=== PATIENT | male | born 1990 | race African-American/Black ===

== ENCOUNTER 2018-10-29 15:07 | Emergency (ER) | payer SELFPAY ==
[~2018-10-29] VITALS: Ht 182.9 cm; Wt 142.9 kg
--- OUTSIDE RECORDS SUMMARY | 2018-10-29 15:10 | XMS REPORT | Clinical Summary ---
Author Author DIONE Spark MobileSt. Luke'S Wood River Medical CenterNovoPolymers [facility] Organization [facility] CenterDiartis PharmaceuticalsKittitas [facility] Address Unknown Phone Unavailable Care Team Providers Care Social Services Analyst Name Role Phone Pcp, No PCP Unavailable Allergies No Known Allergies Medications End Date Status Medication Sig Dispensed Refills Start Date Active losartan (COZAAR) 100 MG Take 100 mg 0 tablet by mouth daily. Active losartan (COZAAR) 100 MG Take 100 mg 0 tablet by mouth. 9 06/23/2019 Active albuterol HFA (VENTOLIN Inhale 2 1 Inhaler 0 HFA) 90 mcg/actuation puffs by 9 inhaler mouth via inhaler every 4 (four) hours as needed for Wheezing. 05/04/2018 Discontinued fluticasone (FLONASE) 50 2 sprays. 0 mcg/actuation nasal spray 8 06/28/2018 predniSONE (DELTASONE) 20 Take 2 10 tablet 0 MG tablet tablets (40 9 mg total) by mouth daily for 5 days. Active Problems Problem Noted Date Uncontrolled hypertension 05/04/2018 Paresthesias 05/04/2018 Abnormal EKG 05/04/2018 Encounters Care Team Description Date Type Specialty Steve Marroquin DO Acute chest pain (Primary Dx); Acute URI; Essential hypertension; Obesity (BMI 30-39.9) 06/22/2018 Emergency Emergency Medicine - 06/23/2018 06/22/2018 Orders Only General Internal Medicine 06/22/2018 Regla Borrero DO Uncontrolled hypertension (Primary Dx); Paresthesias; Abnormal EKG 05/04/2018 Emergency Emergency Medicine 05/04/2018 Steve Trinh DO Acute chest pain (Primary Dx); Obesity (BMI 30-39.9); Essential hypertension 04/28/2018 Emergency Emergency Medicine 04/28/2018 Orders Only General Internal Medicine after 10/28/2017 Social History Date Tobacco Use Types Packs/Day Years Used Former Smoker Smokeless Tobacco: Never Used Alcohol Use Drinks/Week oz/Week Comments No Alcohol Habits Answer Date Recorded How often do you have a drink containing alcohol? Never 04/28/2018 How many drinks containing alcohol do you have on Not asked a typical day when you are drinking? How often do you have six or more drinks on one Not asked occasion? Sex Assigned at Date Recorded Not on file Industry Job Start Date Occupation Not on file Not on file Not on file Travel End Travel History Travel Start No recent travel history available. Last Filed Vital Signs Time Taken Vital Sign Reading 06/23/2018 12:34 AM CDT Blood Pressure 136/82 06/23/2018 12:34 AM CDT Pulse 72 06/23/2018 12:34 AM CDT Temperature 36.6 C (97.9 F) 06/23/2018 12:34 AM CDT Respiratory Rate 18 06/23/2018 12:34 AM CDT Oxygen Saturation 97% - Inhaled Oxygen - Concentration 06/22/2018 9:39 PM CDT Weight 141.1 kg (311 lb) 06/22/2018 9:39 PM CDT Height 182.9 cm (6') 06/22/2018 9:39 PM CDT Body Mass Index 42.18 Plan of Treatment Not on file Procedures Comments Procedure Name Priority Date/Time Associated Diagnosis REPORT OF PROCEDURE - 06/24/2018 ENDOSCOPY SCAN 10:24 AM CDT ED ECG INTERPRETATION Routine 06/23/2018 12:30 AM CDT CBC W/PLT COUNT & AUTO STAT 06/22/2018 DIFFERENTIAL 11:29 PM CDT RAPID TROPONIN I STAT 06/22/2018 11:29 PM CDT COMPREHENSIVE METABOLIC STAT 06/22/2018 PANEL 11:29 PM CDT CBC W/PLT COUNT & AUTO STAT 06/22/2018 DIFFERENTIAL 11:29 PM CDT XR CHEST 2 VIEWS STAT 06/22/2018 11:15 PM CDT ECG 12-LEAD Routine 06/22/2018 9:44 PM CDT ECG 12-LEAD Routine 06/22/2018 9:44 PM CDT Procedure Note - Interface, External Ris In - 06/22/2018 10:58 PM CDT Ventricula r Rate 76 BPM Atrial Rate 76 BPM P-R Interval 160 ms QRS Duration 82 ms Q-T Interval 382 ms QTC Calculatio n(Bazett) 429 ms P Omega 35 degrees R Omega 37 degrees T Omega 13 degrees Normal sinus rhythm Normal ECG When compared with ECG of 9 22:11, Nonspecifi c T wave abnormalit y now evident in Lateral leads ED ECG INTERPRETATION Routine 05/04/2018 10:11 PM BUY BOAT OPERATOR ECG 12-LEAD Routine 05/04/2018 10:11 PM BUY BOAT OPERATOR REPORT OF PROCEDURE - 05/01/2018 ENDOSCOPY SCAN 4:01 PM BUY BOAT OPERATOR RHYTHM STRIP - SCAN 05/01/2018 2:51 PM BUY BOAT OPERATOR CBC W/PLT COUNT & AUTO STAT 04/28/2018 DIFFERENTIAL 9:22 PM BUY BOAT OPERATOR B-TYPE NATRIURETIC FACTOR STAT 04/28/2018 (BNP) 9:22 PM BUY BOAT OPERATOR RAPID TROPONIN I STAT 04/28/2018 9:22 PM BUY BOAT OPERATOR PT/APTT STAT 04/28/2018 9:22 PM BUY BOAT OPERATOR CBC W/PLT COUNT & AUTO STAT 04/28/2018 DIFFERENTIAL 9:22 PM BUY BOAT OPERATOR MAGNESIUM STAT 04/28/2018 9:22 PM BUY BOAT OPERATOR BASIC METABOLIC PANEL (7) STAT 04/28/2018 9:22 PM BUY BOAT OPERATOR XR CHEST PA OR AP 1 VIEW STAT 04/28/2018 IN DEPT. 8:57 PM BUY BOAT OPERATOR ED ECG INTERPRETATION Routine 04/28/2018 8:54 PM BUY BOAT OPERATOR ECG 12-LEAD Routine 04/28/2018 8:51 PM BUY BOAT OPERATOR Procedure Note - Interface, External Ris In - 04/28/2018 8:56 PM BUY BOAT OPERATOR Ventricula r Rate 81 BPM Atrial Rate 81 BPM P-R Interval 144 ms QRS Duration 84 ms Q-T Interval 362 ms QTC Calculatio n(Bazett) 420 ms P Omega 32 degrees R Omega 14 degrees T Omega 11 degrees Normal sinus rhythm Normal ECG No previous ECGs available ECG 12-LEAD STAT 04/28/2018 8:51 PM BUY BOAT OPERATOR after 10/28/2017 Results * EKG-SCANNED (06/24/2018 10:24 AM CDT) Only the most recent of 2 results within the time period is included. Narrative Performed At * ECG/EKG Interpretation (06/23/2018 12:30 AM CDT) Only the most recent of 3 results within the time period is included. Narrative Performed At Steve Marroquin DO 06/23/2018 12:39 AM ECG/EKG Interpretation Date/Time: 06/22/2018 9:44 PM Performed by: Steve Marroquin DO Authorized by: Steve Marroquin DO The ECG was interpreted by ED physician. This ECG was not compared with previous ECG(s).The ECG is interpreted as sinus rhythm. Rate is normal rate. Heart rate is [address] segments normal. Omega is normal. Clinical Impression: non-specific ECGECG reviewed and does not meet STEMI criteria. Patient tolerance: Patient tolerated the procedure well with no immediate complications * Rapid Troponin I ([facility] Only) (06/22/2018 11:29 PM CDT) Only the most recent of 2 results within the time period is included. Rapid Troponin I <0.05 <0.05 ng/mL [facility], [facility] [place] Specimen Blood Performing Organization Address City/State/Zipcode Phone Number [facility] [address] [place] [address] [facility], [facility] [place] * CBC with platelet count + automated diff (06/22/2018 11:29 PM CDT) Only the most recent of 2 results within the time period is included. WBC 6.9 4.0 - 10.0 K/L [facility], [facility] [place] RBC 4.81 4.20 - 5.80 M/L [facility] Hemoglobin 14.6 13.0 - 16.8 GM/DL [facility] [place] Hematocrit 43.5 40.0 - 50.0 % [facility] [place] MCV 90.4 82.0 - 98.0 fL [facility] [place] MCH 30.3 27.0 - 33.0 pg [facility] [place] MCHC 33.5 32.0 - 36.0 GM/DL [facility] [place] RDW 12.9 10.3 - 14.2 % [facility] [place] Platelets 255 150 - 430 K/CU MM [facility] [place] MPV 7.9 6.5 - 10.5 fL [facility] % Neutros 59 % [facility] % Lymphs 30 % [facility] % Monos 9 % [facility] % Eos 2 % [facility] [place] % Baso 1 % [facility] [place] # Neutros 4.02 1.80 - 8.00 K/L [facility] [place] # Lymphs 2.04 1.48 - 4.50 K/L [facility] [place] # Monos 0.63 0.00 - 1.30 K/L [facility] [place] # Eos 0.14 0.00 - 0.50 K/L [facility], [facility] [place] # Baso 0.05 0.00 - 0.20 K/L [facility], [facility] [place] Specimen Blood Performing Organization Address City/State/Zipcode Phone Number [facility] [address] [place] [address] [facility], [facility] [place] * Comprehensive metabolic panel (06/22/2018 11:29 PM CDT) Protein, Total 7.9 6.0 - 8.5 gm/dL [facility], [facility] Albumin 3.9 3.5 - 5.0 g/dL [facility], [facility], [facility] Alkaline Phosphatase 92 30 - 115 U/L [facility] Total Bilirubin 0.4 0.1 - 1.2 mg/dL [facility], [facility] [place] Sodium 136 135 - 148 meq/L [facility] Potassium 4.0 3.6 - 5.5 meq/L [facility] [place] Chloride 104 98 - 106 meq/L [facility] CO2 27 24 - 32 meq/L [facility] BUN 19 10 - 26 mg/dL [facility] Creatinine 0.96 0.50 - 1.20 mg/dL [facility] [place] Glucose 89 70 - 110 mg/dL [facility] Calcium 8.7 8.5 - 10.5 mg/dL [facility], [facility] AST 24 5 - 40 U/L [facility] [place] ALT 34 5 - 50 U/L [facility], [facility] EGFR 114Comment: ESTIMATED GFR IS mL/min/1.73 sq m [facility] NOT ACCURATE CREATININE [facility] MEDICAL CLEARANCE IN [facility], CRITICAL ACCESS HOSPITAL GLOMERULAR FILTRATION RATE. EMERGENCY CENTER, ESTIMATED GFR IS NOT [facility] APPLICABLE FOR DIALYSIS PATIENTS. Specimen Blood Performing Organization Address City/State/Zipcode Phone Number [facility] [address] [place] [address] [facility], [facility] [place] * XR chest 2 views (06/22/2018 11:15 PM CDT) Specimen Narrative Performed At FINAL REPORT [facility] Chest x-ray, PA and lateral views Clinical History: CHEST PAIN Comparison:04/28/2018 Discussion: There are decreased lung volumes. There is no pneumothorax, pulmonary edema or pleural effusion. There is no focal consolidation. The cardiac silhouette appears prominent possibly due to in part to decreased lung volumes. The osseous structures are intact. Signed: Krishna Barraza MD Report Verified Date/Time:06/22/2018 23:36:43 Reading Location: [facility] [id number] Ortho Consult Reading Room Procedure Note Interface, External Ris In - 06/22/2018 11:39 PM CDT FINAL REPORT Chest x-ray, PA and lateral views Clinical History: CHEST PAIN Comparison: 04/28/2018 Discussion: There are decreased lung volumes. There is no pneumothorax, pulmonary edema or pleural effusion. There is no focal consolidation. The cardiac silhouette appears prominent possibly due to in part to decreased lung volumes. The osseous structures are intact. Signed: Krishna Barraza MD Report Verified Date/Time: 06/22/2018 23:36:43 Reading Location: [facility] [id number] Ortho Consult Reading Room Performing Organization Address City/State/Zipcode Phone Number [facility] * ECG 12 lead (06/22/2018 9:44 PM CDT) Only the most recent of 3 results within the time period is included. Specimen Narrative Performed At Ventricular Rate 76 BPM GE MUSE Atrial Rate 76 BPM P-R Interval 160 ms QRS Duration 82 ms Q-T Interval 382 ms QTC Calculation(Bazett) 429 ms P Omega 35 degrees R Omega 37 degrees T Omega 13 degrees Normal sinus rhythm Normal ECG When compared with ECG of 04-MAY-2018 22:11, No significant changes Confirmed by MD ROUSE YOCHAI ([id number]) on 06/23/2018 6:29:49 AM Procedure Note Interface, External Ris In - 06/23/2018 6:30 AM CDT Ventricular Rate 76 BPM Atrial Rate 76 BPM P-R Interval 160 ms QRS Duration 82 ms Q-T Interval 382 ms QTC Calculation(Bazett) 429 ms P Omega 35 degrees R Omega 37 degrees T Omega 13 degrees Normal sinus rhythm Normal ECG When compared with ECG of 04-MAY-2018 22:11, No significant changes Confirmed by MD ROUSE YOCHAI ([id number]) on 06/23/2018 6:29:49 AM Performing Organization Address City/[facility] Cent[facility] Phone Number GE MUSE * RHYTHM STRIP - SCAN (05/01/2018 2:51 PM BUY BOAT OPERATOR) Narrative Performed At * PT/PTT (04/28/2018 9:22 PM BUY BOAT OPERATOR) Protime 11.0 9.8 - 12.0 seconds [facility], [facility] [place] INR 1.0 <=5.9 [facility] [place] PTT 31.8 25.8 - 34.5 seconds [facility], [facility] Specimen Blood Narrative Performed At RECOMMENDED COUMADIN/WARFARIN INR THERAPY RANGES [facility] STANDARD DOSE: 2.0 - 3.0 Includes: PROPHYLAXIS for venous thrombosis, [facility] MEDICAL systemic embolization; TREATMENT for venous thrombosis and/or pulmonary embolus. [facility] HIGH RISK: Target INR is 2.5-3.5 for patients with mechanical heart valves. EMER[facility]ENCY CENTER, [facility] Performing Organization Address [facility] Center[facility]il Phone Number [address] [phone] [facility], [facility], [facility] * B-type Natriuretic Factor (BNP) (04/28/2018 9:22 PM BUY BOAT OPERATOR) BNP <5 0 - 100 pg/mL [facility] [place] Specimen Blood Performing Organization Address [facility] Phone Number [address] [phone] [facility] EM[facility]GENC[facility] [place] * Magnesium (04/28/2018 9:22 PM BUY BOAT OPERATOR) Magnesium 2.0 1.5 - 3.0 mg/dL [facility] [place] Specimen Blood Performing Organization Address [facility] Phone Number [address] [phone] [facility], [facility], [facility] * Basic Metabolic Panel (04/28/2018 9:22 PM BUY BOAT OPERATOR) Sodium 142 135 - 148 meq/L [facility] [place] Potassium 3.8 3.6 - 5.5 meq/L [facility], [facility] [place] Chloride 105 98 - 106 meq/L [facility] [place] CO2 29 24 - 32 meq/L [facility] [place] BUN 17 10 - 26 mg/dL [facility], [facility] [place] Creatinine 0.97 0.50 - 1.20 mg/dL [facility], [facility] [place] Glucose 92 70 - 110 mg/dL [facility], [facility] [place] Calcium 9.3 8.5 - 10.5 mg/dL [facility], [facility], [facility] EGFR 113Comment: INSUFFICIENT mL/min/1.73 sq m [facility] CLINICAL DATA TO CALCULATE [facility] ESTIMATED GFR. [place], [facility] [place] [facility] Specimen Blood Performing Organization Address City/[facility] Centercode Phone Number [facility] [address] [place] [address] [facility], [facility] [place] * XR chest PA or AP 1 view in dept (04/28/2018 8:57 PM BUY BOAT OPERATOR) Specimen Narrative Performed At FINAL REPORT [facility] Chest one view AP 04/28/2018 8:55 PM CLINICAL HISTORY: CHEST PAIN COMPARISON: None available FINDINGS: The lungs are clear. Cardiomediastinal contours are within normal limits. The central pulmonary vasculature is not engorged. IMPRESSION: Unremarkable frontal chest radiograph. Signed: Brian Wilder MD Report Verified Date/Time:04/28/2018 20:55:14 Reading Location: [facility] Radiology Reading Room Procedure Note Interface, External Ris In - 04/28/2018 8:58 PM BUY BOAT OPERATOR FINAL REPORT Chest one view AP 04/28/2018 8:55 PM CLINICAL HISTORY: CHEST PAIN COMPARISON: None available FINDINGS: The lungs are clear. Cardiomediastinal contours are within normal limits. The central pulmonary vasculature is not engorged. IMPRESSION: Unremarkable frontal chest radiograph. Signed: Brian Wilder MD Report Verified Date/Time: 04/28/2018 20:55:14 Reading Location: [facility] Radiology Reading Room Performing Organization Address City/[facility]/Zipcode Phone Number [facility] after 10/28/2017
--- OUTSIDE RECORDS SUMMARY | 2018-10-29 15:10 | XMS REPORT | Clinical Summary ---
Author Author [facility] Organization [facility] Address Unknown Phone Unavailable Care Team Providers Care Live In Housekeeper Name Role Phone Asked, No Pcp PCP Unavailable Allergies No Known Allergies Medications End Date Status Medication Sig Dispensed Refills Start Date 04/27/2018 Discontinued losartan (COZAAR) 50 MG Take 50 mg by 0 tablet mouth daily. 05/27/2018 losartan (COZAAR) 100 MG Take 1 tablet 30 tablet 0 tablet (100 mg 9 total) by mouth daily for 30 days. Active Problems Problem Noted Date Syncope 04/26/2018 Encounters Care Team Description Date Type Specialty Rehrer, DO Ashley Ulloa Martina C., MD Janjua, Ejaz, DO Syncope, unspecified syncope type (Primary Dx); Hypertension, unspecified type 04/26/2018 Emergency General Internal Medicine - 04/27/2018 04/26/2018 Travel after 10/28/2017 Social History Date Tobacco Use Types Packs/Day Years Used Current Every Day Smoker 0.5 5 Smokeless Tobacco: Never Used Alcohol Use Drinks/Week oz/Week Comments No Sex Assigned at Date Recorded Not on file Industry Job Start Date Occupation Not on file Not on file Not on file Travel End Travel History Travel Start No recent travel history available. Last Filed Vital Signs Time Taken Vital Sign Reading 04/27/2018 10:51 AM CONSOLE ATTENDANT Blood Pressure 141/98 04/27/2018 10:51 AM CONSOLE ATTENDANT Pulse 65 04/27/2018 8:07 AM CONSOLE ATTENDANT Temperature 36.9 C (98.5 F) 04/27/2018 9:54 AM CONSOLE ATTENDANT Respiratory Rate 18 04/27/2018 8:07 AM CONSOLE ATTENDANT Oxygen Saturation 99% - Inhaled Oxygen - Concentration 04/26/2018 9:54 AM CONSOLE ATTENDANT Weight 142 kg (312 lb 7 oz) 04/26/2018 9:54 AM CONSOLE ATTENDANT Height 182.9 cm (6') 04/26/2018 9:54 AM CONSOLE ATTENDANT Body Mass Index 42.37 Plan of Treatment Health Maintenance Due Date Last Done Comments INFLUENZA VACCINE 10/22/2018 Procedures Comments Procedure Name Priority Date/Time Associated Diagnosis METANEPHRINES, PLASMA Routine 04/27/2018 (FREE) 9:13 AM CONSOLE ATTENDANT ECHOCARDIOGRAM 2D Routine 04/26/2018 COMPLETE W MMODE SPECTRAL 11:49 AM CONSOLE ATTENDANT COLOR DOPPLER (73000) EEG AWAKE/ASLEEP LESS Routine 04/26/2018 THAN 41 MIN 9:07 AM CONSOLE ATTENDANT ECG 12-LEAD Routine 04/26/2018 7:44 AM CONSOLE ATTENDANT THYROID STIMULATING Timed 04/26/2018 HORMONE 6:21 AM CONSOLE ATTENDANT CORTISOL LEVEL, RANDOM Timed 04/26/2018 6:21 AM CONSOLE ATTENDANT LIPID PANEL Timed 04/26/2018 6:21 AM CONSOLE ATTENDANT TROPONIN Timed 04/26/2018 6:[address] ANGIOGRAM PE CHEST STAT 04/26/2018 4:29 AM CONSOLE ATTENDANT D-DIMER STAT 04/26/2018 2:23 AM CONSOLE ATTENDANT ECG ED PRELIMINARY Routine 04/26/2018 INTERPRETATION 2:12 AM CONSOLE ATTENDANT ECG 12-LEAD STAT 04/26/2018 1:50 AM CONSOLE ATTENDANT METANEPHRINES, PLASMA STAT 04/26/2018 (FREE) 1:14 AM CONSOLE ATTENDANT HEMOGLOBIN A1C STAT 04/26/2018 1:14 AM CONSOLE ATTENDANT ESTIMATED GFR STAT 04/26/2018 1:14 AM CONSOLE ATTENDANT B NATRIURETIC PEPTIDE STAT 04/26/2018 1:14 AM CONSOLE ATTENDANT TROPONIN STAT 04/26/2018 1:14 AM CONSOLE ATTENDANT COMPREHENSIVE METABOLIC STAT 04/26/2018 PANEL 1:14 AM CONSOLE ATTENDANT HC COMPLETE BLD COUNT STAT 04/26/2018 W/AUTO DIFF 1:14 AM CONSOLE ATTENDANT after 10/28/2017 Results * Metanephrines, plasma (free) (04/27/2018 9:13 AM CONSOLE ATTENDANT) Only the most recent of 2 results within the time period is included. Metanephrine <0.10Comment: Results 0.00 - 0.49 nmol/L [place] repeated. [facility] Normetanephrine <0.10 0.00 - 0.89 nmol/L [place] Comment: [facility] This test was developed and HOSPITAL its performance characteristics determined by the Department of Pathology and Genomic Medicine, [facility]. Plasma free metanephrines are tested by LC-MS/MS. It has not beencleared or approved by FDA. The laboratory is regulated under CLIA as qualified to perform high-complexity testing. This test is used for clinical purposes. It should not be regarded as investigational or for research. Results repeated. Specimen Blood Performing Organization Address City/State/Zipcode Phone Number [facility] DEPARTMENT OF [address] [place] [address] PATHOLOGY AND GENOMIC MEDICINE [address] * Echocardiogram complete w contrast and 3D if needed (04/26/2018 11:49 AM CONSOLE ATTENDANT) Specimen Narrative Performed At [facility] Echocardiography Report [id number] [facility], [facility] 9, [address]Name:TOBY RILEYmynor.ID:[id number] .Date: 04/26/2018Exam Time: 11:02:00 AM Study Type:Routine EchoHeight:72in Weight:312lb BSA: 2.58 m2 DOBAge:1990,27Y Sex: MALE BP:164/103 HR:87 bpm Sonogrphr: MARIA M Jordan Pat. Stat.:Inpatient Room:[address] Status:Final Echo Event ID:[id number] Order ID:[id number] Reason for Study:Syncope/fainting History / Clinical:Hypertension, Syncope Procedures:2D Echo, Colorflow Doppler, Intravenous Optison Contrast SUMMARY: Normal 2D and Doppler examination. FINDINGS: LV: LV size is normal. LV EF is normal. Overall wall motion is normal.Estimated EF is 60-64%. RV: RV size is normal. RV systolic function is normal. LA: LA size is normal. RA: RA size is normal. AO: Aortic root diameter is normal. [place]: No pericardial effusion. AV: No structural AV abnormalities noted. MV: No structural MV abnormalities noted. PV: No structural PV abnormalities noted. TV: No structural TV abnormalities noted. Perez: Normal diastolic function. Other:Insufficient TR jet to estimate PA systolic pressure. MEASUREMENTS: 2D Parasternal Long Nichols LVOT 2.2 cmAo An2.2 cm LVIDd5 cmIndex1.9 cm/m Ao Rtd 3.1 cm Index1.2 cm/m LVIDs3.3 cm LV Jsmb900.2 g(122-174) LV%fs 34.8 % LVM Index 89.2 g/m2 IVSd 1.2 cmRWT0.5 LVPWd1.2 cm LA Sng Plane LA Area 17.9 cm2(8.8-23.4) LA Vol48.6 ml Index18.8 ml/m LA LngAx 5.5 cm RA Sng Plane RA Area 17.2 cm2(8.3-19.5) RA Vol46.2 ml Index17.9 ml/m RA LngAx 5.5 cm DOPPLER LVOT Stroke Vol LVOT 2.2 cmLVOT CO0.2 l/min LVOT TVI19.8 cmLVOT CI0.1 l/m/m2 LVOT Tm319 msecHR 2.2 bpm LVOT SV 75.4 ml Signed 04/26/2018 02:46 PM Abhishek Brenner M.D. Procedure Note Interface, Radiology Results In - 04/26/2018 2:47 PM CONSOLE ATTENDANT Echocardiography Report [id number] [place] [address] Pat.Name: TOBY RILEY Pat.ID: [id number] .Date: 04/26/2018 Exam Time: 11:02:00 AM Study Type:Routine Echo Height: 72in Weight: 312lb BSA: 2.58 m2 Age: 6 1990,27Y Sex: MALE BP: 164/103 HR: 87 bpm Sonogrphr: MARIA M Jordan Pat. Stat.:Inpatient Room: [facility] Study Status:Final Echo Event ID:[id number] Order ID: [id number] Reason for Study:Syncope/fainting History / Clinical:Hypertension, Syncope Procedures:2D Echo, Colorflow Doppler, Intravenous Optison Contrast SUMMARY: Normal 2D and Doppler examination. FINDINGS: LV: LV size is normal. LV EF is normal. Overall wall motion is normal. Estimated EF is 60-64%. RV: RV size is normal. RV systolic function is normal. LA: LA size is normal. RA: RA size is normal. AO: Aortic root diameter is normal. [place]: No pericardial effusion. AV: No structural AV abnormalities noted. MV: No structural MV abnormalities noted. PV: No structural PV abnormalities noted. TV: No structural TV abnormalities noted. Perez: Normal diastolic function. Other: Insufficient TR jet to estimate PA systolic pressure. MEASUREMENTS: 2D Parasternal Long Nichols LVOT 2.2 cm Ao An 2.2 cm LVIDd 5 cm Index 1.9 cm/m Ao Rtd 3.1 cm Index 1.2 cm/m LVIDs 3.3 cm LV Mass 230.2 g (122-174) LV%fs 34.8 % LVM Index 89.2 g/m2 IVSd 1.2 cm RWT 0.5 LVPWd 1.2 cm LA Sng Plane LA Area 17.9 cm2 (8.8-23.4) LA Vol 48.6 ml Index 18.8 ml/m LA LngAx 5.5 cm RA Sng Plane RA Area 17.2 cm2 (8.3-19.5) RA Vol 46.2 ml Index 17.9 ml/m RA LngAx 5.5 cm DOPPLER LVOT Stroke Vol LVOT 2.2 cm LVOT CO 0.2 l/min LVOT TVI 19.8 cm LVOT CI 0.1 l/m/m2 LVOT Tm 319 msec HR 2.2 bpm LVOT SV 75.4 ml Signed 04/26/2018 02:46 PM Abhishek Brenner M.D. Performing Organization Address City/State/Zipcode Phone Number [facility] [address] [place] [address] * EEG (routine) (04/26/2018 9:07 AM CONSOLE ATTENDANT) Narrative Performed At EEG AWAKE AND ASLEEP Date of Service: 04/26/18 Awake Recording: The occipital dominant rhythm is 10-11 Hz. 18-22 Hz activity is present in all regions. Sleep Recording:No epileptiform activity was recorded. Hyperventilation: Not performed. Photic Stimulation: No abnormality elicited. Impression The background activity is within the range of normal variation. No lateralized or epileptiform activity was recorded. ICD-10 Code: R569 * ECG 12 lead (04/26/2018 7:44 AM CONSOLE ATTENDANT) Only the most recent of 2 results within the time period is included. Ventricular 68 [facility] rate Atrial rate 68 [facility] MA interval 148 [facility] QRSD interval 86 [facility] QT interval 408 [facility] QTC interval 433 [facility] P axis 1 30 [facility] QRS axis 1 40 [facility] T wave axis 9 [facility] EKG impression Normal sinus rhythm with sinus H MUSE arrhythmia-Normal ECG-In automated comparison with ECG of 26-APR-2018 01:50,-Borderline criteria for Inferior infarct are no longer present-Nonspecific T wave abnormality has replaced inverted T waves in Inferior leads-Nonspecific T wave abnormality no longer evident in Anterolateral leads- Specimen Narrative Performed At Performing Organization Address [facility] Phone Number [address] [address] * Troponin (04/26/2018 6:21 AM CONSOLE ATTENDANT) Only the most recent of 2 results within the time period is included. Pathologist [facility] Troponin <0.30 0.00 - 0.30 ng/mL [place] Comment: [facility] 0.30 - 1.49 HOSPITAL ng/mlMay indicate increased risk of acute coronary syndrome. >=1.5 ng/ml Consistent with acute myocardial infarction. The diagnostic value of a single normal or non-diagnostic result is questionable.Serial samples at 2-6 hour intervals are required to rule out acute myocardial injury. Specimen Plasma specimen Performing Organization Address City/State/Zipcode Phone Number [facility] DEPARTMENT [address] [address] PATHOLOGY AND GENOMIC MEDICINE [address] * Thyroid stimulating hormone (04/26/2018 6:21 AM CONSOLE ATTENDANT) [facility] TSH 0.96 0.27 - 4.20 uIU/mL [facility] Specimen Plasma specimen Performing Organization Address City/[facility]/Zipcode Phone Number [facility] DEPARTMENT [address] [address] PATHOLOGY AND GENOMIC MEDICINE [address] * Cortisol level, random (04/26/2018 6:21 AM CONSOLE ATTENDANT) Cortisol, 7 ug/dL [place] random Comment: [facility] Reference Ranges are not HOSPITAL established for non-timed Cortisol levels. Reference Range for Timed Cortisol: 6 - 10 AM 6 - 18 ug/dl 4 - 8PM 3 - 11 ug/dl Specimen Plasma specimen Performing Organization Address [facility] Phone Number [facility] [place] [address] PATHOLOGY AND GENOMIC MEDICINE [address] * Lipid panel (04/26/2018 6:21 AM CONSOLE ATTENDANT) [facility] Signature Cholesterol 154 <200 mg/dL [facility] Triglycerides 59 <150 mg/dL [facility] HDL cholesterol 54 >40 mg/dL [facility] LDL cholesterol 94Comment: Result obtained by <100 mg/dL [place] direct LDL measurement [facility] Lipid panel [facility] interpretation Comment: [facility] Total Cholesterol HOSPITAL (mg/dL) <200 Desirable 200-239Borderline -high >=240High Triglycerides (mg/dL) <150 Normal 150-199Borderline -high 200-499High >=500Very high HDL Cholesterol (mg/dL) <40Low (male) <40Low (female) LDL Cholesterol (mg/dL) <100 Optimal 100-129Near or above optimal 130-159Borderline -high 160-189High >=190Very high Risk Catergories that modify LDL goals. Risk Catergories LDL goal (mg/dL) CHD and CHD risk equivalent<100 (10-year risk >20%) Multiple (2+) risk factors <130 (10-year risk=<20%) 0-1 risk factors <160 (<10-year risk) Defining levels of lipids in metabolic syndrome Triglycerides >=150 mg/dL HDL Cholesterol Men <40 mg/dL Women <40 mg/dL Non-HDL cholesterol is a second target for therapy in persons with high triglycerides (>=200 mg/dL) Specimen Plasma specimen Performing Organization Address City/[facility] Phone Number [facility] DEPARTMENT OF [address] [place] [address] PATHOLOGY AND GENOMIC MEDICINE [address] * CT Angiogram Pe Chest (04/26/2018 4:29 AM CONSOLE ATTENDANT) Specimen Narrative Performed At EXAMINATION:[facility]: PE suspectedintermediate probpositive D-dimer, syncope TECHNIQUE:CT angiographic images of the chest were obtained during intravenous administration of iodinated contrast. Computerized reformatted images and 3-D MIP images were also obtained and archived (CT pulmonary embolus protocol).CT scans are performed using radiation dose reduction techniques.Technical factors are evaluated and adjusted to ensure appropriate moderation of exposure.Automated dose management technology is applied to adjust radiation exposure while achieving a diagnostic quality image. COMPARISON:None. Findings: There are no filling defects within the pulmonary arterial system to suggest a pulmonary embolus. No dissection or aneurysm is seen. No consolidation or pleural effusion is seen. No pulmonary mass or nodule is seen. No mediastinal hematoma or lymphadenopathy is seen. Visualized upper abdomen shows no acute abnormality. IMPRESSION: 1. No evidence of pulmonary embolus. No acute abnormality identified in the chest. [facility]-[id number] Procedure Note Interface, Radiology Results Incoming - 04/26/2018 4:36 AM CONSOLE ATTENDANT EXAMINATION: CT ANGIOGRAM PE CHEST CLINICAL HISTORY: PE suspected intermediate prob positive D-dimer, syncope TECHNIQUE: CT angiographic images of the chest were obtained during intravenous administration of iodinated contrast. Computerized reformatted images and 3-D MIP images were also obtained and archived (CT pulmonary embolus protocol). CT scans are performed using radiation dose reduction techniques. Technical factors are evaluated and adjusted to ensure appropriate moderation of exposure. Automated dose management technology is applied to adjust radiation exposure while achieving a diagnostic quality image. COMPARISON: None. Findings: There are no filling defects within the pulmonary arterial system to suggest a pulmonary embolus. No dissection or aneurysm is seen. No consolidation or pleural effusion is seen. No pulmonary mass or nodule is seen. No mediastinal hematoma or lymphadenopathy is seen. Visualized upper abdomen shows no acute abnormality. IMPRESSION: 1. No evidence of pulmonary embolus. No acute abnormality identified in the chest. [facility]-[id number] Performing Organization Address City/State/Zipcode Phone Number [facility] [address] [place] [address] * D-dimer (04/26/2018 2:23 AM CONSOLE ATTENDANT) D-dimer 0.57 (H) 0.00 - 0.40 ug/mL [place] Comment: FEU [facility] Units are ug/ml Fibrinogen HOSPITAL Equivalent Unit. When combined with low clinical probability, D-dimer results of less than 0.5 ug/ml FEU have a good negativepredictive value in excluding PE or DVT. For D-dimer results greater than 0.5ug/ml FEU further testing is indicated if PE or DVT is suspectedclinically. Elevated D-dimer results have been reported in DVT, PE, and DIC cases and may indicate the presence of a clot. D-dimer results may be elevated due to old age, , inflammatory diseases, trauma, post-operative states, sepsis, and malignancies. Specimen Blood Performing Organization Address City/State/Zipcode Phone Number [facility] DEPARTMENT OF [address] [place] [address] PATHOLOGY AND GENOMIC MEDICINE [place] [facility] [address] [place] [address] * ECG ED Preliminary Interpretation - Not an Order (04/26/2018 2:12 AM CONSOLE ATTENDANT) Narrative Performed At Aamir Saab DO 04/28/20186:46 PM ECG ED Preliminary Interpretation - Not an Order Performed by: Aamir Saab DO Authorized by: Aamir Saab DO ECG reviewed by ED Physician in the absence of a new grad rn: yes Previous ECG: Previous ECG:Compared to current Comparison ECG info:EKG changed from August 2016. Similarity:Changes noted Interpretation: Interpretation: abnormal Rate: ECG rate:65 ECG rate assessment: normal Rhythm: Rhythm: sinus rhythm QRS: QRS axis:Normal QRS intervals:Normal Conduction: Conduction: normal ST segments: ST segments:Normal T waves: T waves: inverted Inverted:III, aVF, V4, V5 and V6 Q waves: Q waves:II, III and aVF * Estimated GFR (04/26/2018 1:14 AM CONSOLE ATTENDANT) [facility] Estimated GFR >=90 mL/min/1.73 m2 [place] Comment: [facility] rpretation G1 >=90 Normal or high G2 60-89Mildly decreased O5w45-03 Mildly to moderately decreased B1t05-15 Moderately to severely decreased G4 15-29Severely decreased G5 <15Kidney failure The eGFR was calculated using the Chronic Kidney Disease Epidemiology Collaboration (CKD-EPI) equation. Interpretation is based on recommendations of the National Kidney Foundation-Kidney Disease Outcomes Quality Initiative (NKF-KDOQI) published in 2014. Specimen Plasma specimen Performing Organization Address City/State/Zipcode Phone Number [facility] DEPARTMENT [facility] [place] [address] PATHOLOGY AND GENOMIC MEDICINE [address] * CBC with platelet and differential (04/26/2018 1:14 AM CONSOLE ATTENDANT) WBC 7.11 4.50 - 11.00 k/uL [facility] RBC 5.06 4.40 - 6.00 m/uL [facility] HGB 15.2 14.0 - 18.0 g/dL [facility] HCT 45.7 41.0 - 51.0 % [facility] MCV 90.3 82.0 - 100.0 fL [facility] MCH 30.0 27.0 - 34.0 pg [facility] MCHC 33.3 31.0 - 37.0 g/dL [facility] RDW - SD 42.7 37.0 - 55.0 fL [facility] MPV 10.8 8.8 - 13.2 fL [facility] Platelet count 221 150 - 400 k/uL [facility] Nucleated RBC 0.00 /100 WBC [facility] Neutrophils 64.8 39.0 - 69.0 % [facility] Lymphocytes 23.9 (L) 25.0 - 45.0 % [facility] Monocytes 9.1 0.0 - 10.0 % [facility] Eosinophils 1.1 0.0 - 5.0 % [facility] Basophils 0.8 0.0 - 1.0 % [facility] Immature 0.3Comment: "Immature 0.0 - 1.0 % [place] granulocytes granulocytes" (promyelocytes, [facility] myelocytes, metamyelocytes) HOSPITAL Specimen Blood Performing Organization Address City/[facility]/Zipcode Phone Number [facility] DEPARTMENT [facility] [place] [address] PATHOLOGY AND GENOMIC MEDICINE [address] * B natriuretic peptide (04/26/2018 1:14 AM CONSOLE ATTENDANT) BNP 10 0 - 100 pg/mL [facility] Specimen Blood Performing Organization Address City/State/Zipcode Phone Number [facility] DEPARTMENT OF [address] [place] [address] PATHOLOGY AND GENOMIC MEDICINE [address] * Hemoglobin A1c (04/26/2018 1:14 AM CONSOLE ATTENDANT) Hemoglobin A1C 5.3 4.0 - 5.6 % [place] Comment: [facility] HbA1c cutoffs for diagnosing HOSPITAL diabetes: 4.0% - 5.6%=normal 5.7% - 6.4%=increased risk for diabetes (prediabetes) >=6.5%=diabetes Goals for glycemic control (ADA 2016) < 7.0%Target for non adults with diabetes. More or less stringent targets may be appropriate for individual patients. <7.5% Target for Children and adolescents with type 1 diabetes. Specimen Performing Organization Address City/State/[place] [address] PATHOLOGY AND GENOMIC MEDICINE [address] * Comprehensive metabolic panel (04/26/2018 1:14 AM CONSOLE ATTENDANT) Sodium 139 135 - 148 mEq/L [facility] Potassium 3.8 3.5 - 5.0 mEq/L [facility] Chloride 103 98 - 112 mEq/L [facility] CO2 29 24 - 31 mEq/L [facility] Anion gap 7@ANIO 7 - 15 mEq/L [facility] BUN 14 6 - 20 mg/dL [facility] Creatinine 1.05 0.70 - 1.20 mg/dL [facility] Glucose 89 65 - 99 mg/dL [facility] Calcium 9.3 8.3 - 10.2 mg/dL [facility] Protein 7.5 6.3 - 8.3 g/dL [place] Comment: [facility] 4.6-7.0 g/dL 1 week 4.4-7.6 g/dL 7 months-1year 5.1-7.3 g/dL 1-2 years5.6-7 .5 g/dL >3 years6.0-8 .0 g/dL 18-150 6.3-8.3 g/dL Albumin 3.6 3.5 - 5.0 g/dL [facility] A/G ratio 0.9 0.7 - 3.8 [facility] Alkaline 80 40 - 129 U/L [place] phosphatase [facility] AST 21 10 - 50 U/L [facility] ALT 24 5 - 50 U/L [facility] Total bilirubin 0.5 0.0 - 1.2 mg/dL [facility] Specimen Plasma specimen Performing Organization Address City/State/Zipmtde Phone Number [facility] DEPARTMENT OF [address] [place] [address] PATHOLOGY [place] [address] HOSPITAL after 10/28/2017 Insurance Type Payer Benefit Subscriber ID Effective Phone Address Plan / Dates Group O ASHLEY NG xxxxxxxxxxx 2017- ASHLEY RAMIREZ [facility]
--- OUTSIDE RECORDS SUMMARY | 2018-10-29 15:11 | XMS REPORT | CCD ---
Author Author Auto Generated Organization [facility] Address Unknown Phone Unavailable Care Team Providers Care Collector Name Role Phone Timo Hanna CP [phone] Allergies, Adverse Reactions, Alerts Substance Reaction Status NKDA Active Medications Medication Instructions Start Date End Date Status Tessalon 200 mg oral 200 mg=1 cap, PO, TID, # 21 cap, 0 03/12/2013 03/19/2013 Ordered capsule Refill(s) Zithromax Z-Jon 250 250 mg=1 tab, PO, Daily, TAKE 2 03/12/2013 Ordered mg oral tablet TABLETS ON DAY 1; TAKE 1 TABLET ON DAYS 2 - 5, # 1 Pack, 0 Refill(s) TAKE 2 TABLETS ON DAY 1; TAKE 1 TABLET ON DAYS 2 - 5 Tessalon Perles 200 mg, 2 cap, Route: PO, Drug 03/12/2013 03/12/2013 Completed form: CAP, ONCE, Dosing Weight 145.455, kg, Start date: 03/12/13 21:31:00, Stop date: 03/12/13 21:31:00(Same As: Tessalon Perles)"Do Not Crush" Vital Signs Most recent to oldest [Reference Range]: 1 Height 182.88 cm (03/12/2013 20:51:00) Temperature Oral [96.4-99.1 DegF] 99.0 DegF (03/12/2013 20:51:00) Systolic Blood Pressure [90-140 mmHg] 144 mmHg *HI* (03/12/2013 20:51:00) Diastolic Blood Pressure [60-90 mmHg] 93 mmHg *HI* (03/12/2013 20:51:00) Respiratory Rate [14-20 BRMIN] 22 BRMIN *HI* (03/12/2013 20:51:00) Peripheral Pulse Rate [60-100 bpm] 76 bpm (03/12/2013 20:51:00) Weight 145.455 kg (03/12/2013 20:51:00) Results VIRAL - SEROLOGY Most recent to oldest [Reference Range]: 1 Influ A [Negative] Negative (03/12/2013 21:23:44) Influ B [Negative] Negative 1 (03/12/2013 21:23:44) 1Interpretive Data: Influenza A&B Antigen: Due to the low sensitivity of this test a negative result does not exclude influ mague virus infection. A diagnosis of influenza should be considered based on a p atient's clinical presentation and empiric antiviral treatment should be conside red, if indicated. If more conclusive testing is desired, follow-up confirmatory testing with either viral culture or PCR is warranted.
--- OUTSIDE RECORDS SUMMARY | 2018-10-29 15:11 | XMS REPORT ---
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 Allergies, Adverse Reactions, Alerts This patient has no known allergies or adverse reactions. Medications This patient has no known medications. Encounters Start Date/Time End Date/Time Encounter Type Admission Type Attending Clinicians Care Facility Care Department Encounter ID 2018-05-14 11:10:00 2018-05-14 11:10:00 Emergency E [id number] Results Test Description Test Time Test Comments Text Results Atomic Results Result Comments RAPID TROPONIN I 2018-06-23 00:08:00 RAPID TROPONIN I (BEAKER) (test mvnw=9154) < ng/mL <0.05 COMPREHENSIVE METABOLIC [id number] 23:55:00* Test Item Value Reference Range Comments TOTAL PROTEIN (BEAKER) (test abdr=331) 7.9 gm/dL 6.0-8.5 ALBUMIN (BEAKER) (test kcku=0274) 3.9 g/dL 3.5-5.0 ALKALINE PHOSPHATASE (BEAKER) (test btpy=469) 92 U/L 30-115 BILIRUBIN TOTAL (BEAKER) (test veks=904) 0.4 mg/dL 0.1-1.2 SODIUM (BEAKER) (test zcch=403) 136 meq/L 135-148 POTASSIUM (BEAKER) (test gtld=379) 4.0 meq/L 3.6-5.5 CHLORIDE (BEAKER) (test prpw=114) 104 meq/L 98-106 CO2 (BEAKER) (test mznp=320) 27 meq/L 24-32 BLOOD UREA NITROGEN (BEAKER) (test klgz=743) 19 mg/dL 10-26 CREATININE (BEAKER) (test npeh=052) 0.96 mg/dL 0.50-1.20 GLUCOSE RANDOM (BEAKER) (test wuzu=893) 89 mg/dL 70-110 CALCIUM (BEAKER) (test fukx=999) 8.7 mg/dL 8.5-10.5 AST (SGOT) (BEAKER) (test exlq=414) 24 U/L 5-40 ALT (SGPT) (BEAKER) (test pfsb=048) 34 U/L 5-50 EGFR (BEAKER) (test vspf=2314) 114 mL/min/1.73 sq m ESTIMATED GFR IS NOT ACCURATE CREATININE CLEARANCE IN PREDICTING GLOMERULAR FILTRATION RATE. ESTIMATED GFR IS NOT APPLICABLE FOR DIALYSIS PATIENTS. CBC W/PLT COUNT & AUTO [id number] 23:43:00* Test Item Value Reference Range Comments WHITE BLOOD CELL COUNT (BEAKER) (test xlsu=266) 6.9 K/ L 4.0-10.0 RED BLOOD CELL COUNT (BEAKER) (test yeps=537) 4.81 M/ L 4.20-5.80 HEMOGLOBIN (BEAKER) (test gxdk=736) 14.6 GM/DL 13.0-16.8 HEMATOCRIT (BEAKER) (test yuog=876) 43.5 % 40.0-50.0 MEAN CORPUSCULAR VOLUME (BEAKER) (test ewag=704) 90.4 fL 82.0-98.0 MEAN CORPUSCULAR HEMOGLOBIN (BEAKER) (test vuyi=297) 30.3 pg 27.0-33.0 MEAN CORPUSCULAR HEMOGLOBIN CONC (BEAKER) (test xoti=116) 33.5 GM/DL 32.0-36.0 RED CELL DISTRIBUTION WIDTH (BEAKER) (test hlfp=920) 12.9 % 10.3-14.2 PLATELET COUNT (BEAKER) (test gvif=874) 255 K/CU MM 150-430 MEAN PLATELET VOLUME (BEAKER) (test dzes=877) 7.9 fL 6.5-10.5 NEUTROPHILS RELATIVE PERCENT (BEAKER) (test szfi=681) 59 % LYMPHOCYTES RELATIVE PERCENT (BEAKER) (test gshn=068) 30 % MONOCYTES RELATIVE PERCENT (BEAKER) (test cnxj=095) 9 % EOSINOPHILS RELATIVE PERCENT (BEAKER) (test vres=862) 2 % BASOPHILS RELATIVE PERCENT (BEAKER) (test vkrw=830) 1 % NEUTROPHILS ABSOLUTE COUNT (BEAKER) (test ojdx=867) 4.02 K/ L 1.80-8.00 LYMPHOCYTES ABSOLUTE COUNT (BEAKER) (test qmow=722) 2.04 K/ L 1.48-4.50 MONOCYTES ABSOLUTE COUNT (BEAKER) (test qren=843) 0.63 K/ L 0.00-1.30 EOSINOPHILS ABSOLUTE COUNT (BEAKER) (test ouqx=748) 0.14 K/ L 0.00-0.50 BASOPHILS ABSOLUTE COUNT (BEAKER) (test zuyl=201) 0.05 K/ L 0.00-0.20 RAD, CHEST, 2 [id number] 23:36:00Reason for exam:->CHEST PAINcough for a month with green mucus, chest pains intermittentlyShould this be performed at the bedside?->NoFINAL REPORT Chest x-ray, PA and lateral views Clinical History: CHEST PAIN Comparison: 04/28/2018 Discussion: There are decreased lung volumes. There is no pneumothorax, pulmonary edema or pleural effusion. There is no focal consolidation. The cardiac silhouette appears prominent possibly due to in part to decreased lung volumes. The osseous structures are intact. Signed: Krishna Barraza MDReport Verified Date/Time: 06/22/2018 23:36:43 Reading Location: [address] Ortho Consult Reading Room B-TYPE NATRIURETIC FACTOR (BNP)2018-04-28 21:45:00* Test Item Value Reference Range Comments B-TYPE NATRIURETIC PEPTIDE (BEAKER) (test mkjk=315) < pg/mL 0-100 RAPID TROPONIN [id number] 21:45:00* Test Item Value Reference Range Comments RAPID TROPONIN I (BEAKER) (test stdt=7710) < ng/mL <0.05 [id number] 21:41:00* Test Item Value Reference Range Comments MAGNESIUM (BEAKER) (test nahk=965) 2.0 mg/dL 1.5-3.0 BASIC METABOLIC [id number] 21:41:00* Test Item Value Reference Range Comments SODIUM (BEAKER) (test baws=506) 142 meq/L 135-148 POTASSIUM (BEAKER) (test yiov=301) 3.8 meq/L 3.6-5.5 CHLORIDE (BEAKER) (test ssys=387) 105 meq/L 98-106 CO2 (BEAKER) (test ldak=403) 29 meq/L 24-32 BLOOD UREA NITROGEN (BEAKER) (test lppp=659) 17 mg/dL 10-26 CREATININE (BEAKER) (test qzhx=119) 0.97 mg/dL 0.50-1.20 GLUCOSE RANDOM (BEAKER) (test wuuu=148) 92 mg/dL 70-110 CALCIUM (BEAKER) (test iupj=470) 9.3 mg/dL 8.5-10.5 EGFR (BEAKER) (test bbbj=7712) 113 mL/min/1.73 sq m INSUFFICIENT CLINICAL DATA TO CALCULATE ESTIMATED GFR. PT/[id number] 21:40:00* Test Item Value Reference Range Comments PROTIME (BEAKER) (test ntoy=460) 11.0 seconds 9.8-12.0 INR (BEAKER) (test fcho=840) 1.0 <=5.9 PARTIAL THROMBOPLASTIN TIME (BEAKER) (test wjdj=837) 31.8 seconds 25.8-34.5 RECOMMENDED COUMADIN/WARFARIN INR THERAPY RANGESSTANDARD DOSE: 2.0 - 3.0 Inclu soham: PROPHYLAXIS for venous thrombosis, systemic embolization; TREATMENT for morgan ous thrombosis and/or pulmonary embolus.HIGH RISK: Target INR is 2.5-3.5 for pat ients with mechanical heart valves.CBC W/PLT COUNT & AUTO [id number] 21:32:00* Test Item Value Reference Range Comments WHITE BLOOD CELL COUNT (BEAKER) (test avzg=487) 7.6 K/ L 4.0-10.0 RED BLOOD CELL COUNT (BEAKER) (test znkx=333) 5.24 M/ L 4.20-5.80 HEMOGLOBIN (BEAKER) (test ytey=131) 16.1 GM/DL 13.0-16.8 HEMATOCRIT (BEAKER) (test djyt=854) 47.6 % 40.0-50.0 MEAN CORPUSCULAR VOLUME (BEAKER) (test osxb=543) 90.9 fL 82.0-98.0 MEAN CORPUSCULAR HEMOGLOBIN (BEAKER) (test erbf=489) 30.7 pg 27.0-33.0 MEAN CORPUSCULAR HEMOGLOBIN CONC (BEAKER) (test lglq=412) 33.8 GM/DL 32.0-36.0 RED CELL DISTRIBUTION WIDTH (BEAKER) (test snrl=962) 12.9 % 10.3-14.2 PLATELET COUNT (BEAKER) (test rrdy=042) 246 K/CU MM 150-430 MEAN PLATELET VOLUME (BEAKER) (test gxzo=748) 9.0 fL 6.5-10.5 NEUTROPHILS RELATIVE PERCENT (BEAKER) (test zlny=703) 63 % LYMPHOCYTES RELATIVE PERCENT (BEAKER) (test proa=433) 26 % MONOCYTES RELATIVE PERCENT (BEAKER) (test ekwv=137) 9 % EOSINOPHILS RELATIVE PERCENT (BEAKER) (test hsmi=748) 2 % BASOPHILS RELATIVE PERCENT (BEAKER) (test oxts=272) 1 % NEUTROPHILS ABSOLUTE COUNT (BEAKER) (test ctpt=668) 4.77 K/ L 1.80-8.00 LYMPHOCYTES ABSOLUTE COUNT (BEAKER) (test nptq=306) 1.94 K/ L 1.48-4.50 MONOCYTES ABSOLUTE COUNT (BEAKER) (test ihtl=752) 0.67 K/ L 0.00-1.30 EOSINOPHILS ABSOLUTE COUNT (BEAKER) (test bror=770) 0.14 K/ L 0.00-0.50 BASOPHILS ABSOLUTE COUNT (BEAKER) (test jyif=710) 0.08 K/ L 0.00-0.20 RAD, CHEST, PA OR AP, 1 [id number] 20:55:00Reason for exam:->CHEST PAINShould this be performed at the bedside?->NoFINAL REPORT Chest one view AP 04/28/2018 8:55 PM CLINICAL HISTORY: CHEST PAIN COMPARISON: None available FINDINGS: The lungs are clear. Cardiomediastinal contours are within normal limits. The central pulmonary vasculature is not engorged. IMPRESSION: Unremarkable frontal chest radiograph. Signed: Brian Wilder Verified Date/Time: 04/28/2018 20:55:14 Reading Location: [facility] Radiology Reading Room
--- OUTSIDE RECORDS SUMMARY | 2018-10-29 15:11 | XMS REPORT | Continuity of Care Document ---
Author Author [employer] Address Unknown Phone Unavailable Care Team Providers Care Patternmaker Sample Name Role Phone Advisity Information [employer] Unavailable Unavailable Problems Problem Status Onset Date Classification Date Reported Comments Source Cough 05/14/2018 05/17/2018 [place] Upper respiratory infection 05/14/2018 05/17/2018 [place] COUGH Active 05/14/2018 [place] Discharge Diagnosis: Chest pain 10/15/2016 10/18/2016 [place], [place] CHEST PAIN Active 10/14/2016 [facility], [place] Discharge Diagnosis: Syncope 09/20/2016 09/23/2016 [place] CONGESTION/COUGH Active 03/12/2013 [place] Anginal pain Resolved Problem 05/17/2018 [facility], [place] Syncopal episodes Resolved Problem 05/17/2018 [facility] [place] HTN (Confirmed) Active Problem 05/17/2018 [facility], [place] CHEST PAIN, UNSPECIFIED Active [facility] Medications Medication Details Route Status Patient Instructions Ordering Provider Order Date Source guaiFENesin 1000 mg oral tablet, extended release 1,000 mg=1 tab, PO, Q12H, X 7 day, # 14 tab, 0 Refill(s) Active 05/14/2018 [facility] benzonatate 100 MG Oral Capsule [Elena Reyna] 100 mg=1 cap, PO, Q8H, PRN cough, do not crush or chew, X 10 day, # 30 cap, 0 Refill(s) Active 05/14/2018 [place] Acetaminophen 500 MG Oral Tablet 500 mg=1 tab, PO, Q4H, PRN Pain, X 10 day, # 60 tab, 0 Refill(s) Active 05/14/2018 [place] ibuprofen 600 mg oral tablet 600 mg=1 tab, PO, Q8H, PRN Pain or Fever, Take with food, X 10 day, # 30 tab, 0 Refill(s) Active 05/14/2018 [place] Ibuprofen 600 mg, Route: PO, Drug form: TAB, ONCE, Dosing Weight 127.273, kg, Priority: STAT, Start date: 10/15/16 1:09:00 CDT, Stop date: 10/15/16 1:09:00 CDT Inactive 10/15/2016 [facility] Saline Flush 0.9% 10 mL, Route: IVP, Drug Form: INJ, Dosing Weight 127.273, kg, PRN, PRN Line Flush, Start date: 10/14/16 22:15:00 CDT, Duration: 30 day, Stop date: 11/13/16 22:14:00 CDTNotes: (Same as: BD Posiflush) No Longer Active 10/15/2016 [facility] Saline Flush 0.9% 10 mL, Route: IVP, Drug Form: INJ, Dosing Weight 136.364, kg, PRN, PRN Line Flush, Start date: 09/20/16 0:04:00 CDT, Duration: 30 day, Stop date: 10/20/16 0:03:00 CDTNotes: (Same as: BD Posiflush) Inactive 09/20/2016 [facility] Sodium Chloride 0.154 MEQ/ML Injectable Solution 1,000 mL, 1000 ml/hr, Infuse Over: 1 hr, Route: IV, 1,000, Drug form: INJ, ONCE, Priority: STAT, Dosing Weight 136.364 kg, Start date: 09/20/16 0:04:00 CDT, Duration: 1 doses or times, Stop date: 09/20/16 0:04:00 CDT Inactive 09/20/2016 [facility] amLODIPine 2.5 mg oral tablet 2.5 mg=1 tab, PO, Daily, # 30 tab, 1 Refill(s), other Active 09/14/2016 [facility] Nitroglycerin 0.4 MG Sublingual Tablet 0.4 mg, 1 tab, Route: SL, Drug form: TAB, Q5Min, Dosing Weight 120.455, kg, PRN Chest Pain, Start date: 09/12/16 18:39:00 CDT, Duration: 30 day, Stop date: 10/12/16 18:38:00 CDTNotes: (Same as:Nitroquick, Nitrostat) "Do Not Crush" Sublingual tablet No Longer Active 09/12/2016 [facility] Acetaminophen 325 MG / Hydrocodone Bitartrate 5 MG Oral Tablet 1 tab, Route: PO, Drug Form: TAB, Dosing Weight 120.455, kg, Q6H, PRN Pain Score 1-3, Start date: 09/12/16 18:38:00 CDT, Duration: 30 day, Stop date: 10/12/16 18:37:00 CDTNotes: (Same as: [place] 325/5) Do not exceed 4gm/day of acetaminophen. No Longer Active 09/12/2016 [facility] Aspirin 325 mg, Route: PO, Drug form: TAB, ONCE, Dosing Weight 120.455, kg, Priority: STAT, Start date: 09/12/16 10:25:00 CDT, Stop date: 09/12/16 10:25:00 CDT Inactive 09/12/2016 [facility] Zofran 4 mg, Route: IVP, Drug form: INJ, ONCE, Dosing Weight 120.455, kg, Priority: STAT, Start date: 09/12/16 9:56:00 CDT, Stop date: 09/12/16 9:56:00 CDT Inactive 09/12/2016 [facility] Morphine 2 mg, Route: IVP, ONCE, Dosing Weight 120.455, kg, Priority: STAT, Start date: 09/12/16 9:56:00 CDT, Stop date: 09/12/16 9:56:00 CDT Inactive 09/12/2016 [facility] Saline Flush 0.9% 10 mL, Route: IVP, Drug Form: INJ, Dosing Weight 120.455, kg, PRN, PRN Line Flush, Start date: 09/12/16 9:53:00 CDT, Duration: 30 day, Stop date: 10/12/16 9:52:00 CDTNotes: (Same as: BD Posiflush) Inactive 09/12/2016 [facility] Sodium Chloride 0.154 MEQ/ML Injectable Solution 1,000 mL, 1000 ml/hr, Infuse Over: 1 hr, Route: IV, 1,000, Drug form: INJ, ONCE, Priority: STAT, Dosing Weight 144.545 kg, Start date: 07/07/16 17:40:00 CDT, Duration: 1 doses or times, Stop date: 07/07/16 17:40:00 CDT Inactive 07/07/2016 [place] Saline Flush 0.9% 10 mL, Route: IVP, Drug Form: INJ, Dosing Weight 144.545, kg, PRN, PRN Line Flush, Start date: 07/07/16 17:40:00 CDT, Duration: 30 day, Stop date: 08/06/16 17:39:00 CDTNotes: (Same as: BD Posiflush) Inactive 07/07/2016 [facility] Ketorolac 30 mg, 1 mL, Route: IVP, Drug form: INJ, ONCE, Dosing Weight 144.545, kg, Priority: STAT, Start date: 07/07/16 17:40:00 CDT, Stop date: 07/07/16 17:40:00 CDTNotes: (Same as:Toradol) IV bolus must be given >15 seconds. Give IM administration slowly and deeply into the muscle. Not for use > 4 days MEDICATION WASTE Product Size: 30 mg Product Wasted: ___ mg Inactive 07/07/2016 [place] Tessalon 200 mg oral capsule 200 mg=1 cap, PO, TID, # 21 cap, 0 Refill(s) Active [place] 03/13/2013 [place] Zithromax Z-Jon 250 mg oral tablet 250 mg=1 tab, PO, Daily, TAKE 2 TABLETS ON DAY 1; TAKE 1 TABLET ON DAYS 2 - 5, # 1 Pack, 0 Refill(s)TAKE 2 TABLETS ON DAY 1; TAKE 1 TABLET ON DAYS 2 - 5 Active [place] 03/13/2013 [facility] Tessalon Perles 200 mg, 2 cap, Route: PO, Drug form: CAP, ONCE, Dosing Weight 145.455, kg, Start date: 03/12/13 21:31:00, Stop date: 03/12/13 21:31:00(Same As: Tessalon Perles) "Do Not Crush" Inactive [place] 03/13/2013 [place] Allergies, Adverse Reactions, Alerts No Known Medication Allergies Immunizations No Data Provided for This Section Results Order Name Results Value Reference Range Date Interpretation Comments Source CARDIAC ENZYMES CK MB <0.5 0.5 - 3.6 10/15/2016 [facility] CARDIAC ENZYMES Total CK 116 12 - 191 10/15/2016 [facility] CARDIAC ENZYMES Troponin-I <0.02 0.00 - 0.40 10/15/2016 [facility] CARDIAC ENZYMES CK MB Index <0.4 0.0 - 2.5 10/15/2016 [facility] CHEM PANEL eGFR 129 10/15/2016 Result Comment: The eGFR is calculated using the CKD-EPI formula. In most young, healthy individuals the eGFR will be >90 mL/min/1.73m2. The eGFR declines with age. An eGFR of 60-89 may be normal in some populations, particularly the elderly, for whom the CKD-EPI formula has not been extensively validated. Use of the eGFR is not recommended in the following populations:

Individuals with unstable creatinine concentrations, including patients and those with serious co-morbid conditions.

Patients with extremes in muscle mass or diet.

The data above are obtained from the National Kidney Disease Education Program (NKDEP) which additionally recommends that when the eGFR is used in patients with extremes of body mass index for purposes of drug dosing, the eGFR should be multiplied by the estimated BMI. [facility] CHEM PANEL Potassium Lvl 3.8 3.5 - 5.1 10/15/2016 [facility] CHEM PANEL Chloride Lvl 105 95 - 109 10/15/2016 [facility] CHEM PANEL CO2 28 24 - 32 10/15/2016 [facility] CHEM PANEL Calcium Lvl 9.1 8.5 - 10.5 10/15/2016 [facility] CHEM PANEL Total Protein 7.5 6.4 - 8.4 10/15/2016 [facility] CHEM PANEL ALT 41 0 - 65 10/15/2016 [facility] CHEM PANEL Alk Phos 73 39 - 136 10/15/2016 [facility] CHEM PANEL Albumin Lvl 3.6 3.5 - 5.0 10/15/2016 [facility] CHEM PANEL AST 18 0 - 37 10/15/2016 [facility] CHEM PANEL Creatinine Lvl 0.94 0.50 - 1.40 10/15/2016 [facility] CHEM PANEL Glucose Lvl 79 70 - 99 10/15/2016 [facility] CHEM PANEL BUN 13 7 - 22 10/15/2016 [facility] CHEM PANEL Sodium Lvl 138 135 - 145 10/15/2016 [facility] CHEM PANEL Bili Total 0.7 0.2 - 1.3 10/15/2016 [facility] CHEM PANEL A/G Ratio 0.9 0.7 - 1.6 10/15/2016 [facility] CHEM PANEL Globulin 3.9 2.7 - 4.2 10/15/2016 [facility] CHEM PANEL B/C Ratio 14 6 - 25 10/15/2016 [facility] CHEM PANEL AGAP 8.8 10.0 - 20.0 10/15/2016 [facility] Hgb 14.9 14.0 - 18.0 10/15/2016 [facility] HEMATOLOGY RBC 4.96 4.70 - 6.10 10/15/2016 [facility] HEMATOLOGY WBC 7.4 3.7 - 10.4 10/15/2016 [facility] HEMATOLOGY Hct 44.1 42.0 - 54.0 10/15/2016 [facility] HEMATOLOGY RDW 13.4 11.5 - 14.5 10/15/2016 [facility] MCH 30.0 27.0 - 31.0 10/15/2016 [facility] MCHC 33.7 32.0 - 36.0 10/15/2016 [facility] MCV 88.8 80.0 - 94.0 10/15/2016 [facility] HEMATOLOGY MPV 9.6 7.4 - 10.4 10/15/2016 [facility] HEMATOLOGY Platelet 173 133 - 450 10/15/2016 [facility] HEMATOLOGY Eosinophils 1.5 0.0 - 4.0 10/15/2016 [facility] HEMATOLOGY Monocytes 7.7 2.0 - 12.0 10/15/2016 [facility] HEMATOLOGY Segs-Bands # 4.4 1.5 - 8.1 10/15/2016 [facility] HEMATOLOGY Lymphocytes # 2.3 1.0 - 5.5 10/15/2016 [facility] HEMATOLOGY Basophils 0.8 0.0 - 1.0 10/15/2016 [facility] HEMATOLOGY Basophils # 0.1 0.0 - 0.2 10/15/2016 [facility] HEMATOLOGY Monocytes # 0.6 0.0 - 0.8 10/15/2016 [facility] HEMATOLOGY Eosinophils # 0.1 0.0 - 0.5 10/15/2016 [facility] HEMATOLOGY Lymphocytes 30.9 20.0 - 40.0 10/15/2016 [facility] HEMATOLOGY Segs 59.1 45.0 - 75.0 10/15/2016 [facility] DRUG SCREEN U Opiate Scr Negative *NA* (09/20/16 1:48 AM) Negative 09/20/2016 [place] DRUG SCREEN U Phencyc Scr Negative *NA* (09/20/16 1:48 AM) Negative 09/20/2016 [place] DRUG SCREEN UDS Note See Note (09/20/16 1:48 AM) 09/20/2016 [place] DRUG SCREEN U Benzodia Scr Negative *NA* (09/20/16 1:48 AM) Negative 09/20/2016 [place] DRUG SCREEN U Cocaine Scr Negative *NA* (09/20/16 1:48 AM) Negative 09/20/2016 [place] DRUG SCREEN U Cannab Scr Positive *ABN* (09/20/16 1:48 AM) Negative 09/20/2016 [place] DRUG SCREEN U Amph Scr Negative *NA* (09/20/16 1:48 AM) Negative 09/20/2016 [place] DRUG SCREEN U Mary Scr Negative *NA* (09/20/16 1:48 AM) Negative 09/20/2016 [place] URINE AND STOOL UA Spec Grav 1.046 <=1.030 09/20/2016 [place] URINE AND STOOL UA Sq Epi None Seen 09/20/2016 [place] URINE AND STOOL UA WBC 1 0 - 5 09/20/2016 [place] URINE AND STOOL UA Leuk Est Negative (09/20/16 1:48 AM) Negative 09/20/2016 [place] URINE AND STOOL UA Mucus Few /LPF None Seen /LPF 09/20/2016 [place] URINE AND STOOL UA Urobilinogen <=1.0 mg/dL 0.1 - 1.0 09/20/2016 [place] URINE AND STOOL UA Nitrite Negative (09/20/16 1:48 AM) Negative 09/20/2016 [place] URINE AND STOOL UA Color Light Yellow *NA* (09/20/16 1:48 AM) Yellow 09/20/2016 [place] URINE AND STOOL UA Turbidity Clear (09/20/16 1:48 AM) Clear 09/20/2016 [place] URINE AND STOOL UA pH 5.0 5.0 - 8.0 09/20/2016 [place] URINE AND STOOL UA Bili Negative *NA* (09/20/16 1:48 AM) Negative 09/20/2016 [place] URINE AND STOOL UA Blood Negative (09/20/16 1:48 AM) Negative 09/20/2016 [place] URINE AND STOOL UA Protein Negative mg/dL Negative mg/dL 09/20/2016 [place] URINE AND STOOL UA Glucose Negative mg/dL Negative mg/dL 09/20/2016 [place] URINE AND STOOL UA Ketones Trace mg/dL Negative mg/dL 09/20/2016 [place] CARDIAC ENZYMES Troponin-I <0.02 0.00 - 0.40 09/20/2016 [place] CHEM PANEL Albumin Lvl 3.7 3.5 - 5.0 09/20/2016 [place] CHEM PANEL Total Protein 7.4 6.4 - 8.4 09/20/2016 [place] CHEM PANEL Calcium Lvl 8.8 8.5 - 10.5 09/20/2016 [place] CHEM PANEL CO2 26 24 - 32 09/20/2016 [place] CHEM PANEL eGFR 101 09/20/2016 Result Comment: The eGFR is calculated using the CKD-EPI formula. In most young, healthy individuals the eGFR will be >90 mL/min/1.73m2. The eGFR declines with age. An eGFR of 60-89 may be normal in some populations, particularly the elderly, for whom the CKD-EPI formula has not been extensively validated. Use of the eGFR is not recommended in the following populations:

Individuals with unstable creatinine concentrations, including patients and those with serious co-morbid conditions.

Patients with extremes in muscle mass or diet.

The data above are obtained from the National Kidney Disease Education Program (NKDEP) which additionally recommends that when the eGFR is used in patients with extremes of body mass index for purposes of drug dosing, the eGFR should be multiplied by the estimated BMI. [place] CHEM PANEL Bili Total 0.6 0.2 - 1.3 09/20/2016 [place] CHEM PANEL Alk Phos 67 39 - 136 09/20/2016 [place] CHEM PANEL AST 13 0 - 37 09/20/2016 [place] CHEM PANEL ALT 32 0 - 65 09/20/2016 [place] CHEM PANEL Chloride Lvl 105 95 - 109 09/20/2016 [place] CHEM PANEL Potassium Lvl 3.7 3.5 - 5.1 09/20/2016 [place] CHEM PANEL Sodium Lvl 139 135 - 145 09/20/2016 [place] CHEM PANEL Creatinine Lvl 1.02 0.50 - 1.40 09/20/2016 [place] CHEM PANEL BUN 17 7 - 22 09/20/2016 [place] CHEM PANEL Glucose Lvl 124 70 - 99 09/20/2016 [place] CHEM PANEL AGAP 11.7 10.0 - 20.0 09/20/2016 [place] CHEM PANEL A/G Ratio 1.0 0.7 - 1.6 09/20/2016 [place] CHEM PANEL Globulin 3.7 2.7 - 4.2 09/20/2016 [place] CHEM PANEL B/C Ratio 17 6 - 25 09/20/2016 [place] HEMATOLOGY Monocytes # 0.3 0.0 - 0.8 09/20/2016 [place] HEMATOLOGY Segs-Bands # 4.9 1.5 - 8.1 09/20/2016 [place] HEMATOLOGY Eosinophils # 0.1 0.0 - 0.5 09/20/2016 [place] HEMATOLOGY Lymphocytes # 2.0 1.0 - 5.5 09/20/2016 [place] HEMATOLOGY Basophils 0.3 0.0 - 1.0 09/20/2016 [place] HEMATOLOGY Basophils # 0.0 0.0 - 0.2 09/20/2016 [place] HEMATOLOGY RBC Morph Normal (09/20/16 12:09 AM) 09/20/2016 [place] HEMATOLOGY Monocytes 4.1 2.0 - 12.0 09/20/2016 [place] HEMATOLOGY Segs 66.4 45.0 - 75.0 09/20/2016 [place] HEMATOLOGY Eosinophils 1.8 0.0 - 4.0 09/20/2016 [place] HEMATOLOGY Lymphocytes 27.4 20.0 - 40.0 09/20/2016 [place] HEMATOLOGY Plt Morph Normal (09/20/16 12:09 AM) 09/20/2016 [place] HEMATOLOGY MPV 8.9 7.4 - 10.4 09/20/2016 [place] HEMATOLOGY Platelet 217 133 - 450 09/20/2016 [place] HEMATOLOGY RDW 13.8 11.5 - 14.5 09/20/2016 [place] HEMATOLOGY MCHC 32.5 32.0 - 36.0 09/20/2016 [place] HEMATOLOGY MCH 29.0 27.0 - 31.0 09/20/2016 [place] HEMATOLOGY MCV 89.1 80.0 - 94.0 09/20/2016 [place] HEMATOLOGY Hct 41.7 42.0 - 54.0 09/20/2016 [place] HEMATOLOGY Hgb 13.6 14.0 - 18.0 09/20/2016 [place] HEMATOLOGY RBC 4.68 4.70 - 6.10 09/20/2016 [place] HEMATOLOGY WBC 7.4 3.7 - 10.4 09/20/2016 [place] HEMATOLOGY D-Dimer 0.44 09/20/2016 [place] TOXICOLOGY Etoh (%) <0.003 09/20/2016 [place] TOXICOLOGY Ethanol Lvl <3 09/20/2016 [facility] LIPIDS Trig 93 <=149 mg/dL 09/13/2016 [facility] LIPIDS CHD Risk 3.76 4.00 - 7.30 09/13/2016 [facility] LIPIDS HDL 45 >=61 mg/dL 09/13/2016 [facility] LIPIDS Chol 169 <=199 mg/dL 09/13/2016 [facility] LIPIDS LDL (Calculated) 105 <=99 mg/dL 09/13/2016 [facility] LIPIDS VLDL 19 09/13/2016 [facility] CARDIAC ENZYMES CK MB Index 0.5 0.0 - 2.5 09/12/2016 [facility] CARDIAC ENZYMES CK MB 1.2 0.5 - 3.6 09/12/2016 [facility] CARDIAC ENZYMES Troponin-I <0.02 0.00 - 0.40 09/12/2016 Result Comment: Specimen slightly hemolyzed. 09/12/2016 16:32 iko [facility] CARDIAC ENZYMES Total CK 244 12 - 191 09/12/2016 [facility] CARDIAC ENZYMES Troponin-I <0.02 0.00 - 0.40 09/12/2016 [facility] CARDIAC ENZYMES BNP 46 <=100 pg/mL 09/12/2016 [facility] CARDIAC ENZYMES Total CK 210 12 - 191 09/12/2016 [facility] CARDIAC ENZYMES CK MB 1.5 0.5 - 3.6 09/12/2016 [facility] CARDIAC ENZYMES CK MB Index 0.7 0.0 - 2.5 09/12/2016 [facility] CHEM PANEL A/G Ratio 0.9 0.7 - 1.6 09/12/2016 [facility] CHEM PANEL Globulin 4.0 2.7 - 4.2 09/12/2016 [facility] CHEM PANEL eGFR 122 09/12/2016 Result Comment: The eGFR is calculated using the CKD-EPI formula. In most young, healthy individuals the eGFR will be >90 mL/min/1.73m2. The eGFR declines with age. An eGFR of 60-89 may be normal in some populations, particularly the elderly, for whom the CKD-EPI formula has not been extensively validated. Use of the eGFR is not recommended in the following populations:

Individuals with unstable creatinine concentrations, including patients and those with serious co-morbid conditions.

Patients with extremes in muscle mass or diet.

The data above are obtained from the National Kidney Disease Education Program (NKDEP) which additionally recommends that when the eGFR is used in patients with extremes of body mass index for purposes of drug dosing, the eGFR should be multiplied by the estimated BMI. [place] CHEM PANEL B/C Ratio 14 6 - 25 09/12/2016 [place] CHEM PANEL Alk Phos 78 39 - 136 09/12/2016 [place] CHEM PANEL Bili Total 1.5 0.2 - 1.3 09/12/2016 [place] CHEM PANEL AGAP 10.0 10.0 - 20.0 09/12/2016 [place] CHEM PANEL ALT 26 0 - 65 09/12/2016 [place] CHEM PANEL AST 11 0 - 37 09/12/2016 [place] CHEM PANEL Albumin Lvl 3.6 3.5 - 5.0 09/12/2016 [place] CHEM PANEL Total Protein 7.6 6.4 - 8.4 09/12/2016 [place] CHEM PANEL Calcium Lvl 8.7 8.5 - 10.5 09/12/2016 [place] CHEM PANEL Chloride Lvl 106 95 - 109 09/12/2016 [place] CHEM PANEL CO2 27 24 - 32 09/12/2016 [place] CHEM PANEL Sodium Lvl 139 135 - 145 09/12/2016 [place] CHEM PANEL Potassium Lvl 4.0 3.5 - 5.1 09/12/2016 [place] CHEM PANEL Creatinine Lvl 0.84 0.50 - 1.40 09/12/2016 [place] CHEM PANEL Glucose Lvl 81 70 - 99 09/12/2016 [place] CHEM PANEL BUN 12 7 - 22 09/12/2016 [facility] DRUG SCREEN UDS Note See Note (09/12/16 10:02 AM) 09/12/2016 [facility] DRUG SCREEN U Phencyc Scr Negative *NA* (09/12/16 10:02 AM) Negative 09/12/2016 [facility] DRUG SCREEN U Opiate Scr Negative *NA* (09/12/16 10:02 AM) Negative 09/12/2016 [facility] DRUG SCREEN U Cannab Scr Positive *ABN* (09/12/16 10:02 AM) Negative 09/12/2016 [facility] DRUG SCREEN U Cocaine Scr Negative *NA* (09/12/16 10:02 AM) Negative 09/12/2016 [facility] DRUG SCREEN U Benzodia Scr Negative *NA* (09/12/16 10:02 AM) Negative 09/12/2016 [facility] DRUG SCREEN U Amph Scr Negative *NA* (09/12/16 10:02 AM) Negative 09/12/2016 [facility] DRUG SCREEN U Mary Scr Negative *NA* (09/12/16 10:02 AM) Negative 09/12/2016 [facility] HEMATOLOGY MPV 9.4 7.4 - 10.4 09/12/2016 [facility] MCHC 33.8 32.0 - 36.0 09/12/2016 [facility] RDW 13.5 11.5 - 14.5 09/12/2016 [facility] Platelet 204 133 - 450 09/12/2016 [facility] Hct 44.4 42.0 - 54.0 09/12/2016 [facility] MCV 89.0 80.0 - 94.0 09/12/2016 [facility] MCH 30.1 27.0 - 31.0 09/12/2016 [facility] RBC 4.99 4.70 - 6.10 09/12/2016 [facility] Hgb 15.0 14.0 - 18.0 09/12/2016 [facility] WBC 5.5 3.7 - 10.4 09/12/2016 [facility] Basophils # 0.1 0.0 - 0.2 09/12/2016 [facility] HEMATOLOGY Eosinophils # 0.1 0.0 - 0.5 09/12/2016 [facility] HEMATOLOGY Segs-Bands # 3.1 1.5 - 8.1 09/12/2016 [facility] HEMATOLOGY Lymphocytes # 1.6 1.0 - 5.5 09/12/2016 [facility] HEMATOLOGY Monocytes # 0.6 0.0 - 0.8 09/12/2016 [facility] Basophils 1.4 0.0 - 1.0 09/12/2016 [facility] HEMATOLOGY Segs 57.0 45.0 - 75.0 09/12/2016 [facility] Lymphocytes 28.2 20.0 - 40.0 09/12/2016 [facility] HEMATOLOGY Monocytes 11.3 2.0 - 12.0 09/12/2016 [facility] HEMATOLOGY Eosinophils 2.1 0.0 - 4.0 09/12/2016 [place] URINE AND STOOL UA Sq Epi None Seen 09/12/2016 [place] URINE AND STOOL UA Urobilinogen <=1.0 mg/dL 0.1 - 1.0 09/12/2016 [facility] URINE AND STOOL UA Blood Small *ABN* (09/12/16 10:02 AM) Negative 09/12/2016 [place] URINE AND STOOL UA Bili Negative *NA* (09/12/16 10:02 AM) Negative 09/12/2016 [place] URINE AND STOOL UA Nitrite Negative (09/12/16 10:02 AM) Negative 09/12/2016 [place] URINE AND STOOL UA Leuk Est Negative (09/12/16 10:02 AM) Negative 09/12/2016 [facility] URINE AND STOOL UA RBC <1 0 - 2 09/12/2016 [facility] URINE AND STOOL UA Mucus Few /LPF None Seen /LPF 09/12/2016 [place] URINE AND STOOL UA WBC 1 0 - 5 09/12/2016 [facility] URINE AND STOOL UA Color Yellow *NA* (09/12/16 10:02 AM) Yellow 09/12/2016 [facility] URINE AND STOOL UA Spec Grav 1.015 <=1.030 09/12/2016 [facility] URINE AND STOOL UA pH 6.0 5.0 - 8.0 09/12/2016 [facility] URINE AND STOOL UA Turbidity Clear (09/12/16 10:02 AM) Clear 09/12/2016 [facility] URINE AND STOOL UA Ketones 20 mg/dL Negative mg/dL 09/12/2016 [facility] URINE AND STOOL UA Glucose Negative mg/dL Negative mg/dL 09/12/2016 [facility] URINE AND STOOL UA Protein Negative mg/dL Negative mg/dL 09/12/2016 [facility] CARDIAC ENZYMES CK MB Index 0.9 0.0 - 2.5 09/09/2016 [facility] CARDIAC ENZYMES Troponin-I <0.02 0.00 - 0.40 09/09/2016 [facility] CARDIAC ENZYMES CK MB 1.5 0.5 - 3.6 09/09/2016 [facility] CARDIAC ENZYMES Total CK 174 12 - 191 09/09/2016 [facility] CHEM PANEL eGFR 142 09/09/2016 Result Comment: The eGFR is calculated using the CKD-EPI formula. In most young, healthy individuals the eGFR will be >90 mL/min/1.73m2. The eGFR declines with age. An eGFR of 60-89 may be normal in some populations, particularly the elderly, for whom the CKD-EPI formula has not been extensively validated. Use of the eGFR is not recommended in the following populations:

Individuals with unstable creatinine concentrations, including patients and those with serious co-morbid conditions.

Patients with extremes in muscle mass or diet.

The data above are obtained from the National Kid[employer] Education Program (NKDEP) which additionally recommends that when the eGFR is used in patients with extremes of body mass index for purposes of drug dosing, the eGFR should be multiplied by the estimated BMI. [facility] CHEM PANEL B/C Ratio 16 6 - 25 09/09/2016 [facility] CHEM PANEL Globulin 3.9 2.7 - 4.2 09/09/2016 [facility] CHEM PANEL A/G Ratio 0.9 0.7 - 1.6 09/09/2016 [facility] CHEM PANEL Calcium Lvl 8.8 8.5 - 10.5 09/09/2016 [facility] CHEM PANEL CO2 29 24 - 32 09/09/2016 [facility] CHEM PANEL Potassium Lvl 3.9 3.5 - 5.1 09/09/2016 [facility] CHEM PANEL Chloride Lvl 106 95 - 109 09/09/2016 [facility] CHEM PANEL Sodium Lvl 140 135 - 145 09/09/2016 [facility] CHEM PANEL BUN 13 7 - 22 09/09/2016 [facility] CHEM PANEL Creatinine Lvl 0.82 0.50 - 1.40 09/09/2016 [facility] CHEM PANEL Glucose Lvl 82 70 - 99 09/09/2016 [facility] CHEM PANEL AGAP 8.9 10.0 - 20.0 09/09/2016 [facility] CHEM PANEL Bili Total 0.5 0.2 - 1.3 09/09/2016 [facility] CHEM PANEL Alk Phos 84 39 - 136 09/09/2016 [facility] CHEM PANEL AST 8 0 - 37 09/09/2016 [facility] CHEM PANEL Albumin Lvl 3.6 3.5 - 5.0 09/09/2016 [facility] CHEM PANEL ALT 24 0 - 65 09/09/2016 [facility] CHEM PANEL Total Protein 7.5 6.4 - 8.4 09/09/2016 [facility] HEMATOLOGY WBC 8.7 3.7 - 10.4 09/09/2016 [facility] MCHC 33.5 32.0 - 36.0 09/09/2016 [facility] HEMATOLOGY Hct 45.5 42.0 - 54.0 09/09/2016 [facility] HEMATOLOGY RDW 13.8 11.5 - 14.5 09/09/2016 [facility] Platelet 239 133 - 450 09/09/2016 [facility] HEMATOLOGY Hgb 15.2 14.0 - 18.0 09/09/2016 [facility] HEMATOLOGY RBC 5.01 4.70 - 6.10 09/09/2016 [facility] MCH 30.4 27.0 - 31.0 09/09/2016 [facility] MCV 90.9 80.0 - 94.0 09/09/2016 [facility] MPV 9.4 7.4 - 10.4 09/09/2016 [facility] HEMATOLOGY Eosinophils # 0.2 0.0 - 0.5 09/09/2016 [facility] HEMATOLOGY Monocytes 6.0 2.0 - 12.0 09/09/2016 [facility] HEMATOLOGY Eosinophils 2.0 0.0 - 4.0 09/09/2016 [facility] HEMATOLOGY Basophils 0.8 0.0 - 1.0 09/09/2016 [facility] HEMATOLOGY Segs-Bands # 5.9 1.5 - 8.1 09/09/2016 [facility] HEMATOLOGY Segs 68.1 45.0 - 75.0 09/09/2016 [facility] Lymphocytes 23.1 20.0 - 40.0 09/09/2016 [facility] Basophils # 0.1 0.0 - 0.2 09/09/2016 [facility] Lymphocytes # 2.0 1.0 - 5.5 09/09/2016 [facility] Monocytes # 0.5 0.0 - 0.8 09/09/2016 [facility] CARDIAC ENZYMES Troponin-I <0.02 0.00 - 0.40 07/07/2016 [facility] CARDIAC ENZYMES Total CK 212 12 - 191 07/07/2016 [facility] CARDIAC ENZYMES CK MB 1.2 0.5 - 3.6 07/07/2016 [facility] CARDIAC ENZYMES CK MB Index 0.6 0.0 - 2.5 07/07/2016 [facility] CHEM PANEL eGFR 105 07/07/2016 Result Comment: The eGFR is calculated using the CKD-EPI formula. In most young, healthy individuals the eGFR will be >90 mL/min/1.73m2. The eGFR declines with age. An eGFR of 60-89 may be normal in some populations, particularly the elderly, for whom the CKD-EPI formula has not been extensively validated. Use of the eGFR is not recommended in the following populations:

Individuals with unstable creatinine concentrations, including patients and those with serious co-morbid conditions.

Patients with extremes in muscle mass or diet.

The data above are obtained from the National Kidney Disease Education Program (NKDEP) which additionally recommends that when the eGFR is used in patients with extremes of body mass index for purposes of drug dosing, the eGFR should be multiplied by the estimated BMI. [facility] CHEM PANEL CO2 27 24 - 32 07/07/2016 [facility] CHEM PANEL Chloride Lvl 107 95 - 109 07/07/2016 [facility] CHEM PANEL Potassium Lvl 3.9 3.5 - 5.1 07/07/2016 [facility] CHEM PANEL Total Protein 7.8 6.4 - 8.4 07/07/2016 [facility] CHEM PANEL Calcium Lvl 9.1 8.5 - 10.5 07/07/2016 [facility] CHEM PANEL Alk Phos 74 39 - 136 07/07/2016 [facility] CHEM PANEL AST 21 0 - 37 07/07/2016 [facility] CHEM PANEL ALT 43 0 - 65 07/07/2016 [facility] CHEM PANEL Albumin Lvl 3.6 3.5 - 5.0 07/07/2016 [facility] CHEM PANEL Bili Total 0.5 0.2 - 1.3 07/07/2016 [facility] CHEM PANEL A/G Ratio 0.9 0.7 - 1.6 07/07/2016 [facility] CHEM PANEL Globulin 4.2 2.7 - 4.2 07/07/2016 [facility] CHEM PANEL B/C Ratio 14 6 - 25 07/07/2016 [facility] CHEM PANEL AGAP 10.9 10.0 - 20.0 07/07/2016 [facility] CHEM PANEL Sodium Lvl 141 135 - 145 07/07/2016 [facility] CHEM PANEL Glucose Lvl 97 70 - 99 07/07/2016 [facility] CHEM PANEL BUN 16 7 - 22 07/07/2016 [facility] CHEM PANEL Creatinine Lvl 1.12 0.50 - 1.40 07/07/2016 [facility] HEMATOLOGY RBC 4.85 4.70 - 6.10 07/07/2016 [facility] HEMATOLOGY WBC 8.5 3.7 - 10.4 07/07/2016 [facility] HEMATOLOGY Platelet 214 133 - 450 07/07/2016 [facility] HEMATOLOGY MPV 9.1 7.4 - 10.4 07/07/2016 [facility] HEMATOLOGY RDW 13.7 11.5 - 14.5 07/07/2016 [facility] HEMATOLOGY MCH 30.1 27.0 - 31.0 07/07/2016 [facility] HEMATOLOGY MCHC 33.6 32.0 - 36.0 07/07/2016 [facility] HEMATOLOGY Hgb 14.6 14.0 - 18.0 07/07/2016 [facility] HEMATOLOGY Hct 43.5 42.0 - 54.0 07/07/2016 [facility] HEMATOLOGY MCV 89.7 80.0 - 94.0 07/07/2016 [facility] HEMATOLOGY D-Dimer 0.36 07/07/2016 [facility] HEMATOLOGY Segs 63.4 45.0 - 75.0 07/07/2016 [facility] HEMATOLOGY Eosinophils # 0.1 0.0 - 0.5 07/07/2016 [facility] HEMATOLOGY Basophils # 0.1 0.0 - 0.2 07/07/2016 [facility] HEMATOLOGY Monocytes # 0.6 0.0 - 0.8 07/07/2016 [facility] HEMATOLOGY Lymphocytes # 2.3 1.0 - 5.5 07/07/2016 [facility] HEMATOLOGY Lymphocytes 27.5 20.0 - 40.0 07/07/2016 [facility] HEMATOLOGY Monocytes 6.7 2.0 - 12.0 07/07/2016 [facility] HEMATOLOGY Eosinophils 1.7 0.0 - 4.0 07/07/2016 [facility] HEMATOLOGY Basophils 0.7 0.0 - 1.0 07/07/2016 [facility] HEMATOLOGY Segs-Bands # 5.4 1.5 - 8.1 07/07/2016 [facility] VIRAL - SEROLOGY Influ A Negative (03/12/2013 21:23:44) Negative 03/13/2013 Normal [place] VIRAL - SEROLOGY Influ B Negative 1 (03/12/2013 21:23:44) Negative 03/13/2013 Normal <sup>1</sup>Interpretive Data: Influenza A&B Antigen:
Due to the low sensitivity of this test a negative result does not exclude influenza virus infection. A diagnosis of influenza should be considered based on a patient's clinical presentation and empiric antiviral treatment should be considered, if indicated. If more conclusive testing is desired, follow-up confirmatory testing with either viral culture or PCR is warranted. [facility] Pathology Reports No Data Provided for This Section Diagnostic Reports Report Value Date Source Chest 1view DX PORTABLE CHEST AP SEMIERECT 05/14/2018, 11:16 AM HISTORY: Cough. Compared to exam dated 10/14/2016. Normal heart size. The lungs are free of active disease. The regional skeleton is intact. Comparison to prior exam demonstrates no new finding or change. IMPRESSION: No active disease in the chest. 05/14/2018 [facility] Chest 1view DX EXAM: XR CHEST 1 VIEW DATE: 10/14/2016 10:15 PM CDT INDICATION: Chest pain. COMPARISON: 09/20/2016. TECHNIQUE: A single AP view of the chest was obtained. FINDINGS: No focal consolidation or pneumothorax is identified. The cardiomediastinal silhouette is within normal limits. The costophrenic recesses are sharp and without effusion. No acute osseous abnormality is noted. IMPRESSION: No acute cardiopulmonary abnormality. SL: [id number] 10/14/2016 [facility] Chest Pulmonary Embolism CTA CLINICAL HISTORY: , - syncope, sob EXAM: CT pulmonary angiogram 09/20/2016 12:36 AM CDT Comparisons: None. TECHNIQUE: Following a timed administration of intravenous contrast, volumetric CT acquisition was performed in the chest. Images in the axial, coronal, and sagittal planes were presented for interpretation. Maximum intensity projection images were also presented for interpretation. This examination was performed according to our departmental dose optimization protocol, which includes automated exposure control, adjustment of the mA and/or kV according to the patient size and/or use of iterative reconstruction technique. Radiation dose and contrast: 100 ml omni DLP: 570.75 mGy-cm. FINDINGS: There is no evidence of pulmonary embolism on this diagnostic quality study. The lungs are clear without focal consolidation or pleural effusion . The heart is normal in size. The thoracic aorta and its primary branches are normal in course and caliber. The main pulmonary artery and visualized proximal tracheobronchial tree are normal in appearance. There are no pathologically enlarged mediastinal, hilar, supraclavicular, or axillary lymph nodes. The soft tissue structures of the neck are grossly normal in appearance. Limited evaluation of the upper abdomen demonstrates no gross abnormalities. The osseous structures are within normal limits for the patient's age. IMPRESSION: 1. No evidence of pulmonary embolism. 2. No acute intrathoracic process. 09/20/2016 [facility] Chest 1view DX Clinical History : , - syncope Exam : Portable AP view of the chest 09/20/2016 12:04 AM CDT Comparisons : Portable AP view of the chest 09/12/2016 Findings : The lungs are clear without focal consolidation or pleural effusion. The heart is normal in size. The mediastinal contours are normal in appearance. The thoracic spine is age appropriate. The shoulders are unremarkable. Limited evaluation of the upper abdomen demonstrates no gross abnormalities. Impression: No acute cardiopulmonary disease (stable appearing chest). 09/20/2016 [facility] Chest 1view DX Study: Chest 1view DX Clinical Indication: - acute chest pain Comparison: Chest x-ray from 07/07/2016 FINDINGS: The cardiac silhouette is normal in size. The lungs are clear and without consolidation or congestion. No pleural effusion or pneumothorax is seen. The osseous structures are unremarkable. IMPRESSION: No acute cardiopulmonary disease. SL: [id number] 09/12/2016 [facility] Chest 2 views DX Exam: Chest X-ray 2 views : CLINICAL HISTORY: Chest pain - chest pain. Comparison: 03/12/2013. Findings: PA and lateral views of the chest are obtained. The heart size is normal. The hilar and mediastinal structures are normal. The lungs are clear without consolidation or effusion. No acute bony abnormality. Pulmonary vascularity is normal. Impression: No active disease . 07/07/2016 [facility] Notes No Data Provided for This Section Discharge Summaries No Data Provided for This Section History and Physicals No Data Provided for This Section Vital Signs Vital Sign Value Date Comments Source Temperature Oral (F) 99.0 F 05/14/2018 [facility] Systolic (mm Hg) 131 05/14/2018 [facility] Diastolic (mm Hg) 89 05/14/2018 [facility] Heart Rate 91 05/14/2018 [facility] Respitory Rate 20 05/14/2018 [facility] Temperature Oral (F) 99.3 F 05/14/2018 [facility] BMI Calculated 42.01 05/14/2018 [facility] Height 182.88 cm 05/14/2018 [facility] Weight 140.511 05/14/2018 [facility] Heart Rate 96 05/14/2018 [facility] Respitory Rate 20 05/14/2018 [facility] Systolic (mm Hg) 155 05/14/2018 [facility] Diastolic (mm Hg) 96 05/14/2018 [facility] Weight 127.273 10/15/2016 [facility] BMI Calculated 38.05 10/15/2016 [facility] Height 182.88 cm 10/15/2016 [facility] Respitory Rate 18 10/15/2016 [facility] Systolic (mm Hg) 140 10/15/2016 [facility] Diastolic (mm Hg) 90 10/15/2016 [facility] Heart Rate 83 10/15/2016 [facility] Respitory Rate 17 09/20/2016 [facility] Systolic (mm Hg) 134 09/20/2016 [facility] Diastolic (mm Hg) 80 09/20/2016 [facility] Temperature Oral (F) 99 F 09/20/2016 [facility] Heart Rate 70 09/20/2016 [facility] Respitory Rate 18 09/20/2016 [facility] Heart Rate 78 09/20/2016 [facility] Systolic (mm Hg) 137 09/20/2016 [facility] Diastolic (mm Hg) 82 09/20/2016 [facility] Temperature Oral (F) 98.2 F 09/20/2016 [facility] Systolic (mm Hg) 134 09/20/2016 [facility] Diastolic (mm Hg) 84 09/20/2016 [facility] Temperature Oral (F) 98.6 F 09/20/2016 [facility] Respitory Rate 17 09/20/2016 [facility] Heart Rate 86 09/20/2016 [facility] Weight 136.364 09/20/2016 [facility] Temperature Oral (F) 98.1 F 09/13/2016 [facility] Systolic (mm Hg) 145 09/13/2016 [facility] Diastolic (mm Hg) 90 09/13/2016 [facility] Respitory Rate 28 09/13/2016 [facility] Heart Rate 75 09/13/2016 [facility] Temperature Oral (F) 97.9 F 09/13/2016 [facility] Heart Rate 78 09/13/2016 [facility] Respitory Rate 20 09/13/2016 [facility] Systolic (mm Hg) 149 09/13/2016 [facility] Diastolic (mm Hg) 100 09/13/2016 [facility] Systolic (mm Hg) 152 09/13/2016 [facility] Diastolic (mm Hg) 85 09/13/2016 [facility] Respitory Rate 20 09/13/2016 [facility] Heart Rate 85 09/13/2016 [facility] Temperature Oral (F) 97.8 F 09/13/2016 [facility] Weight 120.455 09/12/2016 [facility] BMI Calculated 34.1 09/12/2016 [facility] Height 187.96 cm 09/12/2016 [facility] Weight 136.364 09/09/2016 [facility] Height 182.88 cm 09/09/2016 [facility] BMI Calculated 40.77 09/09/2016 [facility] Temperature Oral (F) 98.2 F 09/09/2016 [facility] Systolic (mm Hg) 136 09/09/2016 [facility] Diastolic (mm Hg) 80 09/09/2016 [facility] Heart Rate 67 09/09/2016 [facility] Respitory Rate 18 09/09/2016 [facility] Temperature Oral (F) 98.0 F 07/07/2016 [facility] Systolic (mm Hg) 130 07/07/2016 [facility] Diastolic (mm Hg) 87 07/07/2016 [facility] Respitory Rate 18 07/07/2016 [facility] Heart Rate 73 07/07/2016 [facility] Height 180.34 cm 07/07/2016 [facility] Temperature Oral (F) 97.9 F 07/07/2016 [facility] BMI Calculated 44.44 07/07/2016 [facility] Weight 144.545 07/07/2016 [facility] Respitory Rate 20 07/07/2016 [facility] Heart Rate 69 07/07/2016 [facility] Systolic (mm Hg) 124 07/07/2016 [facility] Diastolic (mm Hg) 95 07/07/2016 [facility] Weight 145.455 03/13/2013 [facility] Systolic (mm Hg) 144 03/13/2013 [facility] Height 182.88 cm 03/13/2013 [facility] Heart Rate 76 03/13/2013 [facility] Diastolic (mm Hg) 93 03/13/2013 [facility] Respitory Rate 22 03/13/2013 [facility] Temperature Oral (F) 99.0 F 03/13/2013 [facility] Encounters Location Location Details Encounter Type Encounter Number Reason For Visit Attending Provider ADM Date DC Date Status [facility] [id number] RITU RICHTER 03/12/2013 03/12/2013 Discharged [facility] Emergency [id number] Scott Fuentes 07/07/2016 07/08/2016 [facility] Emergency [id number] Anuradha Dsouza 09/09/2016 09/09/2016 [facility] Observation [id number] Cortney Zafar 09/12/2016 09/14/2016 [facility] Emergency [id number] Haja Freemanse 09/20/2016 09/20/2016 [facility] Outpatient [id number] MONI SEAY 09/20/2016 [facility] Emergency [id number] Yin Delgado 10/15/2016 10/15/2016 [facility] Emergency [id number] Stephane Pope 05/14/2018 05/14/2018 [facility] Procedures No Data Provided for This Section Assessment and Plan No Data Provided for This Section Plan of Care No Data Provided for This Section Social History Social History Date Source Social History TypeResponse Smoking Status Former smoker; Exposure to Tobacco Smoke None; Cigarette Smoking Last 365 Days Yes; Reg Smoking Cessation Counseling Yes entered on: 05/14/18 05/14/2018 [facility] Social History TypeResponse Smoking Status Former smoker; Exposure to Tobacco Smoke None; Cigarette Smoking Last 365 Days Yes; Reg Smoking Cessation Counseling Yes 09/20/2016 [facility] Social History TypeResponse Smoking Status Current every day smoker; Exposure to Tobacco Smoke None; Cigarette Smoking Last 365 Days Yes; Reg Smoking Cessation Counseling Yes 07/07/2016 [facility] Family History No Data Provided for This Section Advance Directives No Data Provided for This Section Functional Status No Data Provided for This Section
--- OUTSIDE RECORDS SUMMARY | 2018-10-29 15:11 | XMS REPORT | Summary of Care ---
Author Author [facility] Organization [facility] Address Unknown Phone Unavailable Encounter DENISE Teran(OLIVIA) [id number] Date(s): 10/14/16 - 10/15/[address] [facility] [address] [place] [address]- Discharge Diagnosis: Chest pain Discharge Disposition: Home or Self Care Attending Physician: Yin Delgado DO Vital Signs Most recent to 1 oldest [Reference Range]: Height 182.88 cm (10/14/16 10:10 PM) Blood Pressure 140/90 mmHg [90-140/60-90 mmHg] (10/14/16 10:10 PM) Respiratory Rate 18 BRMIN [14-20 BRMIN] (10/14/16 10:10 PM) Peripheral Pulse 83 bpm Rate [60-100 bpm] (10/14/16 10:10 PM) Weight 127.273 kg (10/14/16 10:10 PM) Body Mass Index 38.05 m2 (10/14/16 10:10 PM) Problem List Condition Effective Dates Status Health Status Informant Anginal Resolved pain(Confirmed) Syncopal Resolved episodes(Confirmed) HTN Active (hypertension)(Confi rmed) Allergies, Adverse Reactions, Alerts Substance Reaction Severity Status NKDA Active Medications ibuprofen 600 mg, Route: PO, Drug form: TAB, ONCE, Dosing Weight 127.273, kg, Priority: ST AT, Start date: 10/15/16 1:09:00 CDT, Stop date: 10/15/16 1:09:00 CDT Start Date: 10/15/16 Stop Date: 10/15/16 Status: Completed Saline Flush 0.9% 10 mL, Route: IVP, Drug Form: INJ, Dosing Weight 127.273, kg, PRN, PRN Line Flus h, Start date: 10/14/16 22:15:00 CDT, Duration: 30 day, Stop date: 11/13/16 22:1 4:00 CDT Notes: (Same as: BD Posiflush) Start Date: 10/14/16 Stop Date: 10/15/16 Status: Discontinued Results ELECTROLYTES Most recent to 1 oldest [Reference Range]: Sodium Lvl [135-145 138 mEq/L mEq/L] (10/14/16 11:21 PM) Potassium Lvl 3.8 mEq/L [3.5-5.1 mEq/L] (10/14/16 11:21 PM) Chloride Lvl [95-109 105 mEq/L mEq/L] (10/14/16 11:21 PM) CO2 [24-32 mEq/L] 28 mEq/L (10/14/16 11:21 PM) AGAP [10.0-20.0 8.8 mEq/L mEq/L] *LOW* (10/14/16 11:21 PM) CHEM PANEL Most recent to 1 oldest [Reference Range]: Creatinine Lvl 0.94 mg/dL [0.50-1.40 mg/dL] (10/14/16 11:21 PM) eGFR 129 mL/min/1.73m2 1 *NA* (10/14/16 11:21 PM) BUN [7-22 mg/dL] 13 mg/dL (10/14/16 11:21 PM) B/C Ratio [6-25] 14 (10/14/16 11:21 PM) Glucose Lvl [70-99 79 mg/dL mg/dL] (10/14/16 11:21 PM) Total Protein 7.5 g/dL [6.4-8.4 g/dL] (10/14/16 11:21 PM) Albumin Lvl [3.5-5.0 3.6 g/dL g/dL] (10/14/16 11:21 PM) Globulin [2.7-4.2 3.9 g/dL g/dL] (10/14/16 11:21 PM) A/G Ratio [0.7-1.6] 0.9 (10/14/16 11:21 PM) Calcium Lvl 9.1 mg/dL [8.5-10.5 mg/dL] (10/14/16 11:21 PM) ALT [0-65 unit/L] 41 unit/L (10/14/16 11:21 PM) AST [0-37 unit/L] 18 unit/L (10/14/16 11:21 PM) Alk Phos [39-136 73 unit/L unit/L] (10/14/16 11:21 PM) Bili Total [0.2-1.3 0.7 mg/dL mg/dL] (10/14/16 11:21 PM) 1Result Comment: The eGFR is calculated using the [...] from the National Kidney Disease Education Program ( NKDEP) which additionally recommends that when the eGFR is used in patients with extremes of body mass index for purposes of drug dosing, the eGFR should be mul tiplied by the estimated BMI. CARDIAC ENZYMES Most recent to 1 oldest [Reference Range]: Total CK [12-191 116 unit/L unit/L] (10/14/16 11:21 PM) CK MB [0.5-3.6 <0.5 ng/mL ng/mL] (10/14/16 11:21 PM) CK MB Index <0.4 [0.0-2.5] (10/14/16 11:21 PM) Troponin-I <0.02 ng/mL [0.00-0.40 ng/mL] (10/14/16 11:21 PM) HEMATOLOGY Most recent to 1 oldest [Reference Range]: WBC [3.7-10.4 K/CMM] 7.4 K/CMM (10/14/16 11:21 PM) RBC [4.70-6.10 4.96 M/CMM M/CMM] (10/14/16 11:21 PM) Hgb [14.0-18.0 g/dL] 14.9 g/dL (10/14/16:21 PM) Hct [42.0-54.0 %] 44.1 % (10/14/16 11:21 PM) MCV [80.0-94.0 fL] 88.8 fL (10/14/16 11:21 PM) MCH [27.0-31.0 pg] 30.0 pg (10/14/16:21 PM) MCHC [32.0-36.0 33.7 g/dL g/dL] (10/14/16:21 PM) RDW [11.5-14.5 %] 13.4 % (10/14/16 11:21 PM) Platelet [133-450 173 K/CMM K/CMM] (10/14/16:21 PM) MPV [7.4-10.4 fL] 9.6 fL (10/14/16 11:21 PM) Segs [45.0-75.0 %] 59.1 % (10/14/16 11:21 PM) Lymphocytes 30.9 % [20.0-40.0 %] (10/14/16 11:21 PM) Monocytes [2.0-12.0 7.7 % %] (10/14/16 11:21 PM) Eosinophils [0.0-4.0 1.5 % %] (10/14/16 11:21 PM) Basophils [0.0-1.0 0.8 % %] (10/14/16 11:21 PM) Segs-Bands # 4.4 K/CMM [1.5-8.1 K/CMM] (10/14/16 11:21 PM) Lymphocytes # 2.3 K/CMM [1.0-5.5 K/CMM] (10/14/16 11:21 PM) Monocytes # [0.0-0.8 0.6 K/CMM K/CMM] (10/14/16 11:21 PM) Eosinophils # 0.1 K/CMM [0.0-0.5 K/CMM] (10/14/16 11:21 PM) Basophils # [0.0-0.2 0.1 K/CMM K/CMM] (10/14/16 11:21 PM) Immunizations No data available for this section Procedures No data available for this section Social History Social History Type Response Smoking Status Former smoker; Exposure to Tobacco Smoke None; Cigarette Smoking Last 365 Days Yes; Reg Smoking Cessation Counseling Yes Assessment and Plan No data available for this section
--- OUTSIDE RECORDS SUMMARY | 2018-10-29 15:11 | XMS REPORT | Summary of Care ---
Author Author [facility] Organization [facility] Address Unknown Phone Unavailable Encounter DENISE Teran(OLIVIA) [id number] Date(s): 09/09/16 - 09/09/[address] [facility] [address] [place] [address]- Discharge Disposition: Not Treated Attending Physician: Anuradha Dsouza MD Vital Signs Most recent to 1 oldest [Reference Range]: Height 182.88 cm (09/09/16 11:45 AM) Temperature Oral 98.2 DegF [96.4-99.1 DegF] (09/09/16 11:45 AM) Blood Pressure 136/80 mmHg [90-140/60-90 mmHg] (09/09/16 11:45 AM) Respiratory Rate 18 BRMIN [14-20 BRMIN] (09/09/16 11:45 AM) Peripheral Pulse 67 bpm Rate [60-100 bpm] (09/09/16 11:45 AM) Weight 136.364 kg (09/09/16 11:45 AM) Body Mass Index 40.77 m2 (09/09/16 11:45 AM) Problem List No data available for this section Allergies, Adverse Reactions, Alerts Substance Reaction Severity Status NKDA Active Medications No data available for this section Results ELECTROLYTES Most recent to 1 oldest [Reference Range]: Sodium Lvl [135-145 140 mEq/L mEq/L] (09/09/16 1:41 PM) Potassium Lvl 3.9 mEq/L [3.5-5.1 mEq/L] (09/09/16 1:41 PM) Chloride Lvl [95-109 106 mEq/L mEq/L] (09/09/16 1:41 PM) CO2 [24-32 mEq/L] 29 mEq/L (09/09/16 1:41 PM) AGAP [10.0-20.0 8.9 mEq/L mEq/L] *LOW* (09/09/16 1:41 PM) CHEM PANEL Most recent to 1 oldest [Reference Range]: Creatinine Lvl 0.82 mg/dL [0.50-1.40 mg/dL] (09/09/16 1:41 PM) eGFR 142 mL/min/1.73m2 1 *NA* (09/09/16 1:41 PM) BUN [7-22 mg/dL] 13 mg/dL (09/09/16 1:41 PM) B/C Ratio [6-25] 16 (09/09/16 1:41 PM) Glucose Lvl [70-99 82 mg/dL mg/dL] (09/09/16 1:41 PM) Total Protein 7.5 g/dL [6.4-8.4 g/dL] (09/09/16 1:41 PM) Albumin Lvl [3.5-5.0 3.6 g/dL g/dL] (09/09/16 1:41 PM) Globulin [2.7-4.2 3.9 g/dL g/dL] (09/09/16 1:41 PM) A/G Ratio [0.7-1.6] 0.9 (09/09/16 1:41 PM) Calcium Lvl 8.8 mg/dL [8.5-10.5 mg/dL] (09/09/16 1:41 PM) ALT [0-65 unit/L] 24 unit/L (09/09/16 1:41 PM) AST [0-37 unit/L] 8 unit/L (09/09/16 1:41 PM) Alk Phos [39-136 84 unit/L unit/L] (09/09/16 1:41 PM) Bili Total [0.2-1.3 0.5 mg/dL mg/dL] (09/09/16 1:41 PM) 1Result Comment: The eGFR is calculated [...] 1 oldest [Reference Range]: Total CK [12-191 174 unit/L unit/L] (09/09/16 1:41 PM) CK MB [0.5-3.6 1.5 ng/mL ng/mL] (09/09/16 1:41 PM) CK MB Index 0.9 [0.0-2.5] (09/09/16 1:41 PM) Troponin-I <0.02 ng/mL [0.00-0.40 ng/mL] (09/09/16 1:41 PM) HEMATOLOGY Most recent to 1 oldest [Reference Range]: WBC [3.7-10.4 K/CMM] 8.7 K/CMM (09/09/16 1:41 PM) RBC [4.70-6.10 5.01 M/CMM M/CMM] (09/09/16 1:41 PM) Hgb [14.0-18.0 g/dL] 15.2 g/dL (09/09/16 1:41 PM) Hct [42.0-54.0 %] 45.5 % (09/09/16 1:41 PM) MCV [80.0-94.0 fL] 90.9 fL (09/09/16 1:41 PM) MCH [27.0-31.0 pg] 30.4 pg (09/09/16 1:41 PM) MCHC [32.0-36.0 33.5 g/dL g/dL] (09/09/16 1:41 PM) RDW [11.5-14.5 %] 13.8 % (09/09/16 1:41 PM) Platelet [133-450 239 K/CMM K/CMM] (09/09/16 1:41 PM) MPV [7.4-10.4 fL] 9.4 fL (09/09/16 1:41 PM) Segs [45.0-75.0 %] 68.1 % (09/09/16 1:41 PM) Lymphocytes 23.1 % [20.0-40.0 %] (09/09/16 1:41 PM) Monocytes [2.0-12.0 6.0 % %] (09/09/16 1:41 PM) Eosinophils [0.0-4.0 2.0 % %] (09/09/16 1:41 PM) Basophils [0.0-1.0 0.8 % %] (09/09/16 1:41 PM) Segs-Bands # 5.9 K/CMM [1.5-8.1 K/CMM] (09/09/16 1:41 PM) Lymphocytes # 2.0 K/CMM [1.0-5.5 K/CMM] (09/09/16 1:41 PM) Monocytes # [0.0-0.8 0.5 K/CMM K/CMM] (09/09/16 1:41 PM) Eosinophils # 0.2 K/CMM [0.0-0.5 K/CMM] (09/09/16 1:41 PM) Basophils # [0.0-0.2 0.1 K/CMM K/CMM] (09/09/16 1:41 PM) Immunizations No data available for this section Procedures No data available for this section Social History Social History Type Response Smoking Status Current every day smoker; Exposure to Tobacco Smoke None; Cigarette Smoking Last 365 Days Yes; Reg Smoking Cessation Counseling Yes Assessment and Plan No data available for this section
--- OUTSIDE RECORDS SUMMARY | 2018-10-29 15:11 | XMS REPORT | Summary of Care ---
Author Author [facility] Organization [facility] Address Unknown Phone Unavailable Encounter DENISE Teran(OLIVIA) [id number] Date(s): 09/12/16 - 09/13/16 [facility] [address] [place] [address]- Discharge Disposition: Home or Self Care Attending Physician: Cortney Zafar MD Admitting Physician: Cortney Zafar MD Vital Signs 1 2 3 Most recent to oldest [Reference Range]: 187.96 cm (09/12/16 9:37 AM) Height 98.1 DegF (09/13/16 6:53 PM) 97.9 DegF (09/13/16 3:46 PM) 97.8 DegF (09/13/16 10:41 AM) Temperature Oral [96.4-99.1 DegF] 145/90 mmHg *HI* (09/13/16 6:53 PM) 149/100 mmHg *HI* (09/13/16 3:46 PM) 152/85 mmHg *HI* (09/13/16 10:41 AM) Blood Pressure [90-140/60-90 mmHg] 28 BRMIN *HI* (09/13/16 6:53 PM) 20 BRMIN (09/13/16 3:46 PM) 20 BRMIN (09/13/16 10:41 AM) Respiratory Rate [14-20 BRMIN] 75 bpm (09/13/16 6:53 PM) 78 bpm (09/13/16 3:46 PM) 85 bpm (09/13/16 10:41 AM) Peripheral Pulse Rate [60-100 bpm] 120.455 kg (09/12/16 9:37 AM) Weight 34.1 m2 (09/12/16 9:37 AM) Body Mass Index Problem List No data available for this section Allergies, Adverse Reactions, Alerts Substance Reaction Severity Status NKDA Active Medications acetaminophen-hydrocodone 325 mg-5 mg oral tablet 1 tab, Route: PO, Drug Form: TAB, Dosing Weight 120.455, kg, Q6H, PRN Pain Score 1-3, Start date: 09/12/16 18:38:00 CDT, Duration: 30 day, Stop date: 10/12/16 1 8:37:00 CDT Notes: (Same as: Sidell 325/5) Do not exceed 4gm/day of acetaminophen. Start Date: 09/12/16 Stop Date: 09/14/16 Status: Discontinued amLODIPine 2.5 mg oral tablet 2.5 mg=1 tab, PO, Daily, # 30 tab, 1 Refill(s), other Start Date: 09/13/16 Status: Ordered aspirin 325 mg, Route: PO, Drug form: TAB, ONCE, Dosing Weight 120.455, kg, Priority: ST AT, Start date: 09/12/16 10:25:00 CDT, Stop date: 09/12/16 10:25:00 CDT Start Date: 09/12/16 Stop Date: 09/12/16 Status: Completed morphine Sulfate 2 mg, Route: IVP, ONCE, Dosing Weight 120.455, kg, Priority: STAT, Start date: 0 09/12/16 9:56:00 CDT, Stop date: 09/12/16 9:56:00 CDT Start Date: 09/12/16 Stop Date: 09/12/16 Status: Completed nitroglycerin 0.4 mg sublingual tablet 0.4 mg, 1 tab, Route: SL, Drug form: TAB, Q5Min, Dosing Weight 120.455, kg, PRN Chest Pain, Start date: 09/12/16 18:39:00 CDT, Duration: 30 day, Stop date: 09/22 05/10 18:38:00 CDT Notes: (Same as:Nitroquick, Nitrostat)"Do Not Crush" Sublingual tablet Start Date: 09/12/16 Stop Date: 09/14/16 Status: Discontinued Saline Flush 0.9% 10 mL, Route: IVP, Drug Form: INJ, Dosing Weight 120.455, kg, PRN, PRN Line Flus h, Start date: 09/12/16 9:53:00 CDT, Duration: 30 day, Stop date: 10/12/16 9:52: 00 CDT Notes: (Same as: BD Posiflush) Start Date: 09/12/16 Stop Date: 09/12/16 Status: Discontinued Zofran 4 mg, Route: IVP, Drug form: INJ, ONCE, Dosing Weight 120.455, kg, Priority: STA T, Start date: 09/12/16 9:56:00 CDT, Stop date: 09/12/16 9:56:00 CDT Start Date: 09/12/16 Stop Date: 09/12/16 Status: Completed Results ELECTROLYTES Most recent to 1 2 oldest [Reference Range]: Sodium Lvl [135-145 139 mEq/L mEq/L] (09/12/16 10:02 AM) Potassium Lvl 4.0 mEq/L [3.5-5.1 mEq/L] (09/12/16 10:02 AM) Chloride Lvl [95-109 106 mEq/L mEq/L] (09/12/16 10:02 AM) CO2 [24-32 mEq/L] 27 mEq/L (09/12/16 10:02 AM) AGAP [10.0-20.0 10.0 mEq/L mEq/L] (09/12/16 10:02 AM) CHEM PANEL Most recent to 1 2 oldest [Reference Range]: Creatinine Lvl 0.84 mg/dL [0.50-1.40 mg/dL] (09/12/16 10:02 AM) eGFR 122 mL/min/1.73m2 1 *NA* (09/12/16 10:02 AM) BUN [7-22 mg/dL] 12 mg/dL (09/12/16 10:02 AM) B/C Ratio [6-25] 14 (09/12/16 10:02 AM) Glucose Lvl [70-99 81 mg/dL mg/dL] (09/12/16 10:02 AM) Total Protein 7.6 g/dL [6.4-8.4 g/dL] (09/12/16 10:02 AM) Albumin Lvl [3.5-5.0 3.6 g/dL g/dL] (09/12/16 10:02 AM) Globulin [2.7-4.2 4.0 g/dL g/dL] (09/12/16 10:02 AM) A/G Ratio [0.7-1.6] 0.9 (09/12/16 10:02 AM) Calcium Lvl 8.7 mg/dL [8.5-10.5 mg/dL] (09/12/16 10:02 AM) ALT [0-65 unit/L] 26 unit/L (09/12/16 10:02 AM) AST [0-37 unit/L] 11 unit/L (09/12/16 10:02 AM) Alk Phos [39-136 78 unit/L unit/L] (09/12/16 10:02 AM) Bili Total [0.2-1.3 1.5 mg/dL mg/dL] *HI* (09/12/16 10:02 AM) 1Result Comment: The eGFR is calculated using [...] BMI. CARDIAC ENZYMES Most recent to 1 2 oldest [Reference Range]: Total CK [12-191 244 unit/L 210 unit/L unit/L] *HI* *HI* (09/12/16 4:00 PM) (09/12/16 10:02 AM) CK MB [0.5-3.6 1.2 ng/mL 1.5 ng/mL ng/mL] (09/12/16 4:00 PM) (09/12/16 10:02 AM) CK MB Index 0.5 0.7 [0.0-2.5] (09/12/16 4:00 PM) (09/12/16 10:02 AM) Troponin-I <0.02 ng/mL 1 <0.02 ng/mL [0.00-0.40 ng/mL] (09/12/16 4:00 PM) (09/12/16 10:02 AM) BNP [<=100 pg/mL] 46 pg/mL (09/12/16 10:02 AM) 1Result Comment: Specimen slightly hemolyzed. 09/12/2016 16:32 iko LIPIDS Most recent to 1 2 oldest [Reference Range]: CHD Risk [4.00-7.30] 3.76 *LOW* (09/13/16 7:14 AM) Chol [<=199 mg/dL] 169 mg/dL (09/13/16 7:14 AM) Trig [<=149 mg/dL] 93 mg/dL (09/13/16 7:14 AM) HDL [>=61 mg/dL] 45 mg/dL *LOW* (09/13/16 7:14 AM) LDL (Calculated) 105 mg/dL [<=99 mg/dL] *HI* (09/13/16 7:14 AM) VLDL 19 *NA* (09/13/16 7:14 AM) DRUG SCREEN Most recent to 1 2 oldest [Reference Range]: U Amph Scr Negative [Negative] *NA* (09/12/16 10:02 AM) U Mary Scr Negative [Negative] *NA* (09/12/16 10:02 AM) U Benzodia Scr Negative [Negative] *NA* (09/12/16 10:02 AM) U Cocaine Scr Negative [Negative] *NA* (09/12/16 10:02 AM) U Opiate Scr Negative [Negative] *NA* (09/12/16 10:02 AM) U Phencyc Scr Negative [Negative] *NA* (09/12/16 10:02 AM) U Cannab Scr Positive [Negative] *ABN* (09/12/16 10:02 AM) UDS Note See Note (09/12/16 10:02 AM) URINE AND STOOL Most recent to 1 2 oldest [Reference Range]: UA Turbidity [Clear] Clear (09/12/16 10:02 AM) UA Color [Yellow] Yellow *NA* (09/12/16 10:02 AM) UA pH [5.0-8.0] 6.0 (09/12/16 10:02 AM) UA Spec Grav 1.015 [<=1.030] (09/12/16 10:02 AM) UA Glucose [Negative Negative mg/dL mg/dL] *NA* (09/12/16 10:02 AM) UA Blood [Negative] Small *ABN* (09/12/16 10:02 AM) UA Ketones [Negative 20 mg/dL mg/dL] *ABN* (09/12/16 10:02 AM) UA Protein [Negative Negative mg/dL mg/dL] (09/12/16 10:02 AM) UA Urobilinogen <=1.0 mg/dL [0.1-1.0 mg/dL] *NA* (09/12/16 10:02 AM) UA Bili [Negative] Negative *NA* (09/12/16 10:02 AM) UA Leuk Est Negative [Negative] (09/12/16 10:02 AM) UA Nitrite Negative [Negative] (09/12/16 10:02 AM) UA WBC [0-5 /HPF] 1 /HPF (09/12/16 10:02 AM) UA RBC [0-2 /HPF] <1 /HPF (09/12/16 10:02 AM) UA Sq Epi None Seen *NA* (09/12/16 10:02 AM) UA Mucus [None Seen Few /LPF /LPF] *NA* (09/12/16 10:02 AM) HEMATOLOGY Most recent to 1 2 oldest [Reference Range]: WBC [3.7-10.4 K/CMM] 5.5 K/CMM (09/12/16 10:02 AM) RBC [4.70-6.10 4.99 M/CMM M/CMM] (09/12/16 10:02 AM) Hgb [14.0-18.0 g/dL] 15.0 g/dL (09/12/16 10:02 AM) Hct [42.0-54.0 %] 44.4 % (09/12/16 10:02 AM) MCV [80.0-94.0 fL] 89.0 fL (09/12/16 10:02 AM) MCH [27.0-31.0 pg] 30.1 pg (09/12/16 10:02 AM) MCHC [32.0-36.0 33.8 g/dL g/dL] (09/12/16 10:02 AM) RDW [11.5-14.5 %] 13.5 % (09/12/16 10:02 AM) Platelet [133-450 204 K/CMM K/CMM] (09/12/16 10:02 AM) MPV [7.4-10.4 fL] 9.4 fL (09/12/16 10:02 AM) Segs [45.0-75.0 %] 57.0 % (09/12/16 10:02 AM) Lymphocytes 28.2 % [20.0-40.0 %] (09/12/16 10:02 AM) Monocytes [2.0-12.0 11.3 % %] (09/12/16 10:02 AM) Eosinophils [0.0-4.0 2.1 % %] (09/12/16 10:02 AM) Basophils [0.0-1.0 1.4 % %] *HI* (09/12/16 10:02 AM) Segs-Bands # 3.1 K/CMM [1.5-8.1 K/CMM] (09/12/16 10:02 AM) Lymphocytes # 1.6 K/CMM [1.0-5.5 K/CMM] (09/12/16 10:02 AM) Monocytes # [0.0-0.8 0.6 K/CMM K/CMM] (09/12/16 10:02 AM) Eosinophils # 0.1 K/CMM [0.0-0.5 K/CMM] (09/12/16 10:02 AM) Basophils # [0.0-0.2 0.1 K/CMM K/CMM] (09/12/16 10:02 AM) Immunizations No data available for this section Procedures No data available for this section Social History Social History Type Response Smoking Status Current every day smoker; Exposure to Tobacco Smoke None; Cigarette Smoking Last 365 Days No; Reg Smoking Cessation Counseling Yes Assessment and Plan No data available for this section
--- OUTSIDE RECORDS SUMMARY | 2018-10-29 15:11 | XMS REPORT | Summary of Care ---
Author Author [facility] Organization [facility] Address Unknown Phone Unavailable Encounter DENISE Teran(OLIVIA) [id number] Date(s): 09/19/16 - 09/20/16 [facility] [address] [place] [address]- Discharge Diagnosis: Syncope Discharge Disposition: Home or Self Care Attending Physician: Haja Gagnon MD Vital Signs 1 2 3 Most recent to oldest [Reference Range]: 99 DegF (09/20/16 1:45 AM) 98.2 DegF (09/20/16 12:45 AM) 98.6 DegF (09/19/16 11:45 PM) Temperature Oral [96.4-99.1 DegF] 134/80 mmHg (09/20/16 1:45 AM) 137/82 mmHg (09/20/16 12:45 AM) 134/84 mmHg (09/19/16 11:45 PM) Blood Pressure [90-140/60-90 mmHg] 17 BRMIN (09/20/16 1:45 AM) 18 BRMIN (09/20/16 12:45 AM) 17 BRMIN (09/19/16 11:45 PM) Respiratory Rate [14-20 BRMIN] 70 bpm (09/20/16 1:45 AM) 78 bpm (09/20/16 12:45 AM) 86 bpm (09/19/16 11:45 PM) Peripheral Pulse Rate [60-100 bpm] 136.364 kg (09/19/16 11:45 PM) Weight Problem List Condition Effective Dates Status Health Status Informant Anginal Resolved pain(Confirmed) Syncopal Resolved episodes(Confirmed) HTN Active (hypertension)(Confi rmed) Allergies, Adverse Reactions, Alerts Substance Reaction Severity Status NKDA Active Medications Saline Flush 0.9% 10 mL, Route: IVP, Drug Form: INJ, Dosing Weight 136.364, kg, PRN, PRN Line Flus h, Start date: 09/20/16 0:04:00 CDT, Duration: 30 day, Stop date: 10/20/16 0:03: 00 CDT Notes: (Same as: BD Posiflush) Start Date: 09/20/16 Stop Date: 09/20/16 Status: Discontinued Sodium Chloride 0.9% (Bolus) IV 1,000 mL, 1000 ml/hr, Infuse Over: 1 hr, Route: IV, 1,000, Drug form: INJ, ONCE, Priority: STAT, Dosing Weight 136.364 kg, Start date: 09/20/16 0:04:00 CDT, Dur ation: 1 doses or times, Stop date: 09/20/16 0:04:00 CDT Start Date: 09/20/16 Stop Date: 09/20/16 Status: Completed Results ELECTROLYTES Most recent to 1 oldest [Reference Range]: Sodium Lvl [135-145 139 mEq/L mEq/L] (09/20/16 12:09 AM) Potassium Lvl 3.7 mEq/L [3.5-5.1 mEq/L] (09/20/16 12:09 AM) Chloride Lvl [95-109 105 mEq/L mEq/L] (09/20/16 12:09 AM) CO2 [24-32 mEq/L] 26 mEq/L (09/20/16 12:09 AM) AGAP [10.0-20.0 11.7 mEq/L mEq/L] (09/20/16 12:09 AM) CHEM PANEL Most recent to 1 oldest [Reference Range]: Creatinine Lvl 1.02 mg/dL [0.50-1.40 mg/dL] (09/20/16 12:09 AM) eGFR 101 mL/min/1.73m2 1 *NA* (09/20/16 12:09 AM) BUN [7-22 mg/dL] 17 mg/dL (09/20/16 12:09 AM) B/C Ratio [6-25] 17 (09/20/16 12:09 AM) Glucose Lvl [70-99 124 mg/dL mg/dL] *HI* (09/20/16 12:09 AM) Total Protein 7.4 g/dL [6.4-8.4 g/dL] (09/20/16 12:09 AM) Albumin Lvl [3.5-5.0 3.7 g/dL g/dL] (09/20/16 12:09 AM) Globulin [2.7-4.2 3.7 g/dL g/dL] (09/20/16 12:09 AM) A/G Ratio [0.7-1.6] 1.0 (09/20/16 12:09 AM) Calcium Lvl 8.8 mg/dL [8.5-10.5 mg/dL] (09/20/16 12:09 AM) ALT [0-65 unit/L] 32 unit/L (09/20/16 12:09 AM) AST [0-37 unit/L] 13 unit/L (09/20/16 12:09 AM) Alk Phos [39-136 67 unit/L unit/L] (09/20/16 12:09 AM) Bili Total [0.2-1.3 0.6 mg/dL mg/dL] (09/20/16 12:09 AM) 1Result Comment: The eGFR is calculated [...] Most recent to 1 oldest [Reference Range]: Troponin-I <0.02 ng/mL [0.00-0.40 ng/mL] (09/20/16 12:09 AM) DRUG SCREEN Most recent to 1 oldest [Reference Range]: U Amph Scr Negative [Negative] *NA* (09/20/16 1:48 AM) U Mary Scr Negative [Negative] *NA* (09/20/16 1:48 AM) U Benzodia Scr Negative [Negative] *NA* (09/20/16 1:48 AM) U Cocaine Scr Negative [Negative] *NA* (09/20/16 1:48 AM) U Opiate Scr Negative [Negative] *NA* (09/20/16 1:48 AM) U Phencyc Scr Negative [Negative] *NA* (09/20/16 1:48 AM) U Cannab Scr Positive [Negative] *ABN* (09/20/16 1:48 AM) UDS Note See Note (09/20/16 1:48 AM) TOXICOLOGY Most recent to 1 oldest [Reference Range]: Etoh (%) <.003 % *NA* (09/20/16 12:09 AM) Ethanol Lvl <3 mg/dL *NA* (09/20/16 12:09 AM) URINE AND STOOL Most recent to 1 oldest [Reference Range]: UA Turbidity [Clear] Clear (09/20/16 1:48 AM) UA Color [Yellow] Light Yellow *NA* (09/20/16 1:48 AM) UA pH [5.0-8.0] 5.0 (09/20/16 1:48 AM) UA Spec Grav 1.046 [<=1.030] *HI* (09/20/16 1:48 AM) UA Glucose [Negative Negative mg/dL mg/dL] *NA* (09/20/16 1:48 AM) UA Blood [Negative] Negative (09/20/16 1:48 AM) UA Ketones [Negative Trace mg/dL mg/dL] *ABN* (09/20/16 1:48 AM) UA Protein [Negative Negative mg/dL mg/dL] (09/20/16 1:48 AM) UA Urobilinogen <=1.0 mg/dL [0.1-1.0 mg/dL] *NA* (09/20/16 1:48 AM) UA Bili [Negative] Negative *NA* (09/20/16 1:48 AM) UA Leuk Est Negative [Negative] (09/20/16 1:48 AM) UA Nitrite Negative [Negative] (09/20/16 1:48 AM) UA WBC [0-5 /HPF] 1 /HPF (09/20/16 1:48 AM) UA Sq Epi None Seen *NA* (09/20/16 1:48 AM) UA Mucus [None Seen Few /LPF /LPF] *NA* (09/20/16 1:48 AM) HEMATOLOGY Most recent to 1 oldest [Reference Range]: WBC [3.7-10.4 K/CMM] 7.4 K/CMM (09/20/16 12:09 AM) RBC [4.70-6.10 4.68 M/CMM M/CMM] *LOW* (09/20/16 12:09 AM) Hgb [14.0-18.0 g/dL] 13.6 g/dL *LOW* (09/20/16 12:09 AM) Hct [42.0-54.0 %] 41.7 % *LOW* (09/20/16 12:09 AM) MCV [80.0-94.0 fL] 89.1 fL (09/20/16 12:09 AM) MCH [27.0-31.0 pg] 29.0 pg (09/20/16 12:09 AM) MCHC [32.0-36.0 32.5 g/dL g/dL] (09/20/16 12:09 AM) RDW [11.5-14.5 %] 13.8 % (09/20/16 12:09 AM) Platelet [133-450 217 K/CMM K/CMM] (09/20/16 12:09 AM) MPV [7.4-10.4 fL] 8.9 fL (09/20/16 12:09 AM) Segs [45.0-75.0 %] 66.4 % (09/20/16 12:09 AM) Lymphocytes 27.4 % [20.0-40.0 %] (09/20/16 12:09 AM) Monocytes [2.0-12.0 4.1 % %] (09/20/16 12:09 AM) Eosinophils [0.0-4.0 1.8 % %] (09/20/16 12:09 AM) Basophils [0.0-1.0 0.3 % %] (09/20/16 12:09 AM) Segs-Bands # 4.9 K/CMM [1.5-8.1 K/CMM] (09/20/16 12:09 AM) Lymphocytes # 2.0 K/CMM [1.0-5.5 K/CMM] (09/20/16 12:09 AM) Monocytes # [0.0-0.8 0.3 K/CMM K/CMM] (09/20/16 12:09 AM) Eosinophils # 0.1 K/CMM [0.0-0.5 K/CMM] (09/20/16 12:09 AM) Basophils # [0.0-0.2 0.0 K/CMM K/CMM] (09/20/16 12:09 AM) RBC Morph Normal (09/20/16 12:09 AM) Plt Morph Normal (09/20/16 12:09 AM) D-Dimer 0.44 ug/mL FEU *NA* (09/20/16 12:09 AM) Immunizations No data available for this section Procedures No data available for this section Social History Social History Type Response Smoking Status Former smoker; Exposure to Tobacco Smoke None; Cigarette Smoking Last 365 Days Yes; Reg Smoking Cessation Counseling Yes Assessment and Plan No data available for this section
--- OUTSIDE RECORDS SUMMARY | 2018-10-29 15:11 | XMS REPORT | Summary of Care ---
Author Author [facility] Organization [facility] Address Unknown Phone Unavailable Encounter HQ Jeffry([facility]) [id number] Date(s): 05/14/18 - 05/14/18 [facility] [address] [place] [address]- Encounter Diagnosis Cough (Discharge Diagnosis) - 05/14/18 Upper respiratory infection (Discharge Diagnosis) - 05/14/18 Discharge Disposition: Home or Self Care Attending Physician: Stephane Pope MD Vital Signs Most recent to 1 2 oldest [Reference Range]: Height 182.88 cm (05/14/18 11:12 AM) Temperature Oral 99.0 DegF 99.3 DegF [96.4-99.1 DegF] (05/14/18 12:39 PM) *HI* (05/14/18 11:12 AM) Blood Pressure 131/89 mmHg 155/96 mmHg [90-140/60-90 mmHg] (05/14/18 12:39 PM) *HI* (05/14/18 11:12 AM) Respiratory Rate 20 BRMIN 20 BRMIN [14-20 BRMIN] (05/14/18 12:39 PM) (05/14/18 11:12 AM) Peripheral Pulse 91 bpm 96 bpm Rate [60-100 bpm] (05/14/18 12:39 PM) (05/14/18 11:12 AM) Weight 140.511 kg (05/14/18 11:12 AM) Body Mass Index 42.01 m2 (05/14/18 11:12 AM) Problem List Condition Effective Dates Status Health Status Informant Anginal Resolved pain(Confirmed) Syncopal Resolved episodes(Confirmed) HTN Active (hypertension)(Confi rmed) Allergies, Adverse Reactions, Alerts Substance Reaction Severity Status NKDA Active Medications acetaminophen 500 mg oral tablet 500 mg=1 tab, PO, Q4H, PRN Pain, X 10 day, # 60 tab, 0 Refill(s) Start Date: 05/14/18 Stop Date: 05/24/18 Status: Ordered guaiFENesin 1000 mg oral tablet, extended release 1,000 mg=1 tab, PO, Q12H, X 7 day, # 14 tab, 0 Refill(s) Start Date: 05/14/18 Stop Date: 05/21/18 Status: Ordered ibuprofen 600 mg oral tablet 600 mg=1 tab, PO, Q8H, PRN Pain or Fever, Take with food, X 10 day, # 30 tab, 0 Refill(s) Start Date: 05/14/18 Stop Date: 05/24/18 Status: Ordered Tessalon Perles 100 mg oral capsule 100 mg=1 cap, PO, Q8H, PRN cough, do not crush or chew, X 10 day, # 30 cap, 0 Re fill(s) Start Date: 05/14/18 Stop Date: 05/24/18 Status: Ordered Results No data available for this section Immunizations No data available for this section Procedures No data available for this section Social History Social History Type Response Smoking Status Former smoker; Exposure to Tobacco Smoke None; Cigarette Smoking Last 365 Days Yes; Reg Smoking Cessation Counseling Yes entered on: 05/14/18 Assessment and Plan No data available for this section
--- OUTSIDE RECORDS SUMMARY | 2018-10-29 15:11 | XMS REPORT | Summary of Care ---
Author Author [facility] Address Unknown Phone Unavailable Encounter DENISE Teran(OLIVIA) [id number] Date(s): 07/07/16 - 07/07/16 [facility] [address] [place] [address]- Discharge Diagnosis: Syncope Discharge Diagnosis: Chest pain Discharge Disposition: Home or Self Care Attending Physician: Scott Fuentes MD Vital Signs Most recent to 1 2 oldest [Reference Range]: Height 180.34 cm (07/07/16 5:22 PM) Temperature Oral 98.0 DegF 97.9 DegF [96.4-99.1 DegF] (07/07/16 6:45 PM) (07/07/16 5:22 PM) Blood Pressure 130/87 mmHg 124/95 mmHg [90-140/60-90 mmHg] (07/07/16 6:45 PM) (07/07/16 5:22 PM) Respiratory Rate 18 BRMIN 20 BRMIN [14-20 BRMIN] (07/07/16 6:45 PM) (07/07/16 5:22 PM) Peripheral Pulse 73 bpm 69 bpm Rate [60-100 bpm] (07/07/16 6:45 PM) (07/07/16 5:22 PM) Weight 144.545 kg (07/07/16 5:22 PM) Body Mass Index 44.44 m2 (07/07/16 5:22 PM) Problem List No data available for this section Allergies, Adverse Reactions, Alerts Substance Reaction Severity Status NKDA Active Medications ketOROLAC 30 mg, 1 mL, Route: IVP, Drug form: INJ, ONCE, Dosing Weight 144.545, kg, Priori ty: STAT, Start date: 07/07/16 17:40:00 CDT, Stop date: 07/07/16 17:40:00 CDT Notes: (Same as:Toradol) IV bolus must be given >15 seconds. Give IM administration slowly and deeply into the muscle.Not for use > 4 days MEDICATION WASTE Product Size: 30 mgProduct Wasted: ___ mg Start Date: 07/07/16 Stop Date: 07/07/16 Status: Completed Saline Flush 0.9% 10 mL, Route: IVP, Drug Form: INJ, Dosing Weight 144.545, kg, PRN, PRN Line Flus h, Start date: 07/07/16 17:40:00 CDT, Duration: 30 day, Stop date: 08/06/16 17:3 9:00 CDT Notes: (Same as: BD Posiflush) Start Date: 07/07/16 Stop Date: 07/07/16 Status: Discontinued Sodium Chloride 0.9% (Bolus) IV 1,000 mL, 1000 ml/hr, Infuse Over: 1 hr, Route: IV, 1,000, Drug form: INJ, ONCE, Priority: STAT, Dosing Weight 144.545 kg, Start date: 07/07/16 17:40:00 CDT, Du ration: 1 doses or times, Stop date: 07/07/16 17:40:00 CDT Start Date: 07/07/16 Stop Date: 07/07/16 Status: Completed Results ELECTROLYTES Most recent to 1 oldest [Reference Range]: Sodium Lvl [135-145 141 mEq/L mEq/L] (07/07/16 5:57 PM) Potassium Lvl 3.9 mEq/L [3.5-5.1 mEq/L] (07/07/16 5:57 PM) Chloride Lvl [95-109 107 mEq/L mEq/L] (07/07/16 5:57 PM) CO2 [24-32 mEq/L] 27 mEq/L (07/07/16 5:57 PM) AGAP [10.0-20.0 10.9 mEq/L mEq/L] (07/07/16 5:57 PM) CHEM PANEL Most recent to 1 oldest [Reference Range]: Creatinine Lvl 1.12 mg/dL [0.50-1.40 mg/dL] (07/07/16 5:57 PM) eGFR 105 mL/min/1.73m2 1 *NA* (07/07/16 5:57 PM) BUN [7-22 mg/dL] 16 mg/dL (07/07/16 5:57 PM) B/C Ratio [6-25] 14 (07/07/16 5:57 PM) Glucose Lvl [70-99 97 mg/dL mg/dL] (07/07/16 5:57 PM) Total Protein 7.8 g/dL [6.4-8.4 g/dL] (07/07/16 5:57 PM) Albumin Lvl [3.5-5.0 3.6 g/dL g/dL] (07/07/16 5:57 PM) Globulin [2.7-4.2 4.2 g/dL g/dL] (07/07/16 5:57 PM) A/G Ratio [0.7-1.6] 0.9 (07/07/16 5:57 PM) Calcium Lvl 9.1 mg/dL [8.5-10.5 mg/dL] (07/07/16 5:57 PM) ALT [0-65 unit/L] 43 unit/L (07/07/16 5:57 PM) AST [0-37 unit/L] 21 unit/L (07/07/16 5:57 PM) Alk Phos [39-136 74 unit/L unit/L] (07/07/16 5:57 PM) Bili Total [0.2-1.3 0.5 mg/dL mg/dL] (07/07/16 5:57 PM) 1Result Comment: The eGFR is calculated [...] 1 oldest [Reference Range]: Total CK [12-191 212 unit/L unit/L] *HI* (07/07/16 5:57 PM) CK MB [0.5-3.6 1.2 ng/mL ng/mL] (07/07/16 5:57 PM) CK MB Index 0.6 [0.0-2.5] (07/07/16 5:57 PM) Troponin-I <0.02 ng/mL [0.00-0.40 ng/mL] (07/07/16 5:57 PM) HEMATOLOGY Most recent to 1 oldest [Reference Range]: WBC [3.7-10.4 K/CMM] 8.5 K/CMM (07/07/16 5:57 PM) RBC [4.70-6.10 4.85 M/CMM M/CMM] (07/07/16 5:57 PM) Hgb [14.0-18.0 g/dL] 14.6 g/dL (07/07/16 5:57 PM) Hct [42.0-54.0 %] 43.5 % (07/07/16 5:57 PM) MCV [80.0-94.0 fL] 89.7 fL (07/07/16 5:57 PM) MCH [27.0-31.0 pg] 30.1 pg (07/07/16 5:57 PM) MCHC [32.0-36.0 33.6 g/dL g/dL] (07/07/16 5:57 PM) RDW [11.5-14.5 %] 13.7 % (07/07/16 5:57 PM) Platelet [133-450 214 K/CMM K/CMM] (07/07/16 5:57 PM) MPV [7.4-10.4 fL] 9.1 fL (07/07/16 5:57 PM) Segs [45.0-75.0 %] 63.4 % (07/07/16 5:57 PM) Lymphocytes 27.5 % [20.0-40.0 %] (07/07/16 5:57 PM) Monocytes [2.0-12.0 6.7 % %] (07/07/16 5:57 PM) Eosinophils [0.0-4.0 1.7 % %] (07/07/16 5:57 PM) Basophils [0.0-1.0 0.7 % %] (07/07/16 5:57 PM) Segs-Bands # 5.4 K/CMM [1.5-8.1 K/CMM] (07/07/16 5:57 PM) Lymphocytes # 2.3 K/CMM [1.0-5.5 K/CMM] (07/07/16 5:57 PM) Monocytes # [0.0-0.8 0.6 K/CMM K/CMM] (07/07/16 5:57 PM) Eosinophils # 0.1 K/CMM [0.0-0.5 K/CMM] (07/07/16 5:57 PM) Basophils # [0.0-0.2 0.1 K/CMM K/CMM] (07/07/16 5:57 PM) D-Dimer 0.36 ug/mL FEU *NA* (07/07/16 5:57 PM) Immunizations No data available for this section Procedures No data available for this section Social History Social History Type Response Smoking Status Current every day smoker; Exposure to Tobacco Smoke None; Cigarette Smoking Last 365 Days Yes; Reg Smoking Cessation Counseling Yes Assessment and Plan No data available for this section
[2018-10-29] MEDS ORDERED: ASPIRIN 81 MG CHEW TAB PO ONE (15:30)
--- NOTE | 2018-10-29 16:03 | Diagnostic Imaging Report ---
EXAMINATION: CHEST SINGLE (PORTABLE) INDICATION: Chest pain COMPARISON: None FINDINGS: LINES/TUBES:EKG leads overlie the chest. LUNGS:The lungs are well-inflated. No focal consolidation or pulmonary edema. PLEURA:No pleural effusion or pneumothorax. MEDIASTINUM:The cardiomediastinal silhouette appears normal in size and shape. BONES/SOFT TISSUES:No acute osseous injury. ABDOMEN:No free air under the diaphragm. IMPRESSION: No focal pneumonia or pulmonary edema. Signed by: Kell Guardado MD on 10/29/2018 4:00 PM
[2018-10-29 16:45] VITALS: BP 153/94
== END 2018-10-29 16:55 | disposition home or self-care (01) ==
LOC: ER 15:07
DX: R07.89 Other chest pain (principal); I10 Essential (primary) hypertension
CPT/HCPCS: 36415; 71045; 93005; 99284